=== PATIENT | male | born 1930 | race Caucasian/White ===

== ENCOUNTER 2016-08-11 10:04 | Inpatient (IN) | payer MEDICARE, OTHER ==
--- NOTE | 2016-08-11 10:55 | EKG REPORT ---
SEVERITY:- ABNORMAL ECG - SINUS RHYTHM PROBABLE INFERIOR INFARCT, OLD : Confirmed by: Cricket Marin 11-Aug-2016 10:55:00
[2016-08-11 10:58] LABS: ABSOLUTE BASOPHILS # (AUTO) 0.1 10^3/uL (0.0-0.2); ABSOLUTE EOSINOPHILS # (AUTO) 0.2 10^3/uL (0.0-0.6); ABSOLUTE LYMPHOCYTES (AUTO) 0.8 10^3/uL (0.5-4.7); ABSOLUTE MONOCYTES (AUTO) 0.6 10^3/uL (0.1-1.4); BASOPHILS % (AUTO) 1.3 % (0-2); HEMATOCRIT 33.9 % (37.9-51.0); HEMOGLOBIN 11.8 g/dL (13.5-17.0); HGB HCT DIFFERENCE 1.5; LYMPHOCYTES % (AUTO) 11.6 % (13-45); MEAN CORPUSCULAR HGB CONC 34.9 g/dL (32.0-36.0); MEAN CORPUSCULAR VOLUME 92 fl (80-97); MONOCYTES % (AUTO) 8.8 % (3-13); RED BLOOD COUNT 3.69 10^6/uL (4.35-5.55); RED CELL DISTRIBUTION WIDTH 14.2 % (11.5-14.0); SEGMENTED NEUTROPHILS % (AUTO) 75.3 % (42-78); WHITE BLOOD COUNT 6.6 10^3/uL (4.0-10.5)
[2016-08-11] MEDS ORDERED: IPRATROPIUM/ALBUTEROL 0.5-2.5 MG/3 ML AMPUL NEB ONE (11:00)
[2016-08-11 11:20] LABS: ALANINE AMINOTRANSFERASE 21 U/L (21-72); ALBUMIN 3.7 g/dL (3.5-5.0); ALCOHOL < 10 mg/dL (NONE DETECTED); ALKALINE PHOSPHATASE 235 U/L (38-126); ANION GAP 9 (5-19); ASPARTATE AMINO TRANSFERASE 25 U/L (17-59); BILIRUBIN,DIRECT 0.2 mg/dL (0.0-0.4); BILIRUBIN,TOTAL 0.4 mg/dL (0.2-1.3); BLOOD UREA NITROGEN 28 mg/dL (7-20); CALCIUM 9.2 mg/dL (8.4-10.2); CARBON DIOXIDE 29 mmol/L (22-30); CHLORIDE 103 mmol/L (98-107); CREATININE RESULT 0.94 mg/dL (0.52-1.25); GLUCOSE 88 mg/dL (75-110); MAGNESIUM 2.2 mg/dL (1.6-2.3); POTASSIUM 4.4 mmol/L (3.6-5.0); SODIUM 141.3 mmol/L (137-145); TOTAL PROTEIN 6.3 g/dL (6.3-8.2)
--- NOTE | 2016-08-11 11:20 | ER Document Report ---
ED General - General Chief Complaint: Altered Mental Status Stated Complaint: ALTERED MENTAL STATUS Mode of Arrival: Medic Information source: Patient, Relative Notes: 85 yr old male presents with concerns of altered mental status from care facility. Noted that care facility believed patient was speaking about fish in a fireplace,. Patient at this time denies any concerns, notes he has Parkinson' s and becomes confused intermittently. Patient notes he has multiple falls TRAVEL OUTSIDE OF THE [place] IN LAST 30 DAYS: No - HPI Onset: Just prior to arrival Onset/Duration: Sudden Quality of pain: No pain Severity: Mild Pain Level: Denies Associated symptoms: Other Exacerbated by: Denies Relieved by: Denies Similar symptoms previously: Yes Recently seen / treated by doctor: No - Related Data Allergies/Adverse Reactions: Penicillins Allergy (Verified 08/21/14 23:22) Past Medical History - Social History Smoking Status: Never Smoker Cigarette use (# per day): No Chew tobacco use (# tins/day): No Smoking Education Provided: No Family History: Reviewed & Not Pertinent - Past Medical History Cardiac Medical History: Reports: Hx Atrial Fibrillation - Paroxysmal atrial fibrillation, Hx Hypertension Renal/ Medical History: Reports: Hx Benign Prostatic Hyperplasia, Hx Hydrocele GI Medical History: Reports: Hx Gastroesophageal Reflux Disease Musculoskeltal Medical History: Reports Hx Arthritis Psychiatric Medical History: Reports: Hx Dementia - Parkinson's dementia, Hx Depression Past Surgical History: Reports: Hx Orthopedic Surgery - Immunizations Hx Diphtheria, Pertussis, Tetanus Vaccination: Yes - unknown Review of Systems - Review of Systems Notes: REVIEW OF SYSTEMS: CONSTITUTIONAL : Denies fever, chills, or sweats. Denies recent illness. EENT: Denies eye, ear, throat, or mouth pain or symptoms. Denies nasal or sinus congestion or discharge. Denies throat, tongue, or mouth swelling or difficulty swallowing. CARDIOVASCULAR: Denies chest pain. Denies palpitations or racing or irregular heart beat. Denies ankle edema. RESPIRATORY: Cough GASTROINTESTINAL: Denies abdominal pain or distention. Denies nausea, vomiting , or diarrhea. Denies blood in vomitus, stools, or per rectum. Denies black, tarry stools. Denies constipation. GENITOURINARY: Denies difficulty urinating, painful urination, burning, frequency, blood in urine, or discharge. MUSCULOSKELETAL: Denies back or neck pain or stiffness. Denies joint pain or swelling. SKIN: Denies rash, lesions or sores. HEMATOLOGIC : Denies easy bruising or bleeding. LYMPHATIC: Denies swollen, enlarged glands. NEUROLOGICAL: Confusion noted by care facility PSYCHIATRIC: Denies anxiety or stress. Denies depression, suicidal ideation, or homicidal ideation. ALL OTHER SYSTEMS REVIEWED AND NEGATIVE. Dictation was performed using [employer] voice recognition software PHYSICAL EXAMINATION: GENERAL: Well-appearing, well-nourished and in no acute distress. HEAD: Atraumatic, normocephalic. EYES: Pupils equal round and reactive to light, extraocular movements intact, sclera anicteric, conjunctiva are normal. ENT: Nares patent, oropharynx clear without exudates. Moist mucous membranes. NECK: Normal range of motion, supple without lymphadenopathy LUNGS: Coarse wheezing on expiration HEART: Regular rate and rhythm without murmurs ABDOMEN: Soft, nontender, nondistended abdomen. No guarding, no rebound. No masses appreciated. Musculoskeletal: Normal range of motion, no pitting or edema. No cyanosis. NEUROLOGICAL: Cranial nerves grossly intact. Normal speech, normal gait. Normal sensory, motor exams PSYCH: Normal mood, normal affect. SKIN: Warm, Dry, normal turgor, no rashes or lesions noted. Physical Exam - Vital signs Vitals: Temp Resp BP 97.8 F 17 146/74 H 08/11/16 10:13 08/11/16 10:13 08/11/16 10:13 Course - Re-evaluation Re-evalutation: 08/11/16 11:19 Lab work imaging pending, there are coarse expiratory breath sounds noted duo neb ordered septic workup pending 08/11/16 12:13 UA consistant with UTI chest xray conssitant with pneumonia Will admit the patient to hospital service for further evaluation and care Levaquin has already been started - Vital Signs Vital signs: Temp Pulse Resp BP Pulse Ox 97.8 F 20 142/73 H 96 08/11/16 10:13 08/11/16 11:35 08/11/16 11:35 08/11/16 12:03 - Laboratory Result Diagrams: 08/11/16 10:42 08/11/16 10:42 Laboratory results interpreted by me: 08/11/16 08/11/16 08/11/16 10:42 10:42 11:20 RBC 3.69 L Hgb 11.8 L Hct 33.9 L RDW 14.2 H Lymphocytes % 11.6 L BUN 28 H Alkaline Phosphatase 235 H Urine Protein 30 H Urine Ketones TRACE H Urine Blood MODERATE H Ur Leukocyte Esterase LARGE H - Diagnostic Test Radiology reviewed: Image reviewed, Reports reviewed - EKG Interpretation by Me EKG shows normal: Sinus rhythm, Burwell, Intervals, QRS Complexes Discharge - Discharge Clinical Impression: Metabolic encephalopathy Pneumonia Qualifiers: Pneumonia type: due to unspecified organism Laterality: right Lung location: lower lobe of lung Qualified Code(s): J18.1 - Lobar pneumonia, unspecified organism UTI (urinary tract infection) Qualifiers: Urinary tract infection type: site unspecified Hematuria presence: with hematuria Qualified Code(s): N39.0 - Urinary tract infection, site not specified ; R31.9 - Hematuria, unspecified Condition: Stable Disposition: ADMITTED INPATIENT Admitting Provider: Hospitalist Unit Admitted: Telemetry
[2016-08-11] MEDS ORDERED: LEVOFLOXACIN 500 MG/D5W RTU 100 ML IV ONE (11:29)
[2016-08-11 12:00] LABS: APPEARANCE,URINE TURBID; BILIRUBIN,URINE NEGATIVE (NEGATIVE); GLUCOSE, URINE NEGATIVE (NEGATIVE); KETONES,URINE TRACE mg/dL (NEGATIVE); LEUKOCYTE ESTERASE,URINE LARGE (NEGATIVE); NITRITE,URINE NEGATIVE (NEGATIVE); PROTEIN,URINE 30 mg/dL (NEGATIVE); URINE SPECIFIC GRAVITY 1.012; UROBILINOGEN,URINE NEGATIVE mg/dL (<2.0)
[2016-08-11 12:12] LABS: URINE BARBITURATES SCREEN NEGATIVE; URINE METHADONE SCREEN NEGATIVE; URINE OPIATES LOW NEGATIVE; URINE PHENCYCLIDINE SCREEN NEGATIVE
[2016-08-11] MEDS ORDERED: NORMAL SALINE 1000 ML 1,000 ML IV ONE (12:15)
[2016-08-11] MEDS ORDERED: IPRATROPIUM/ALBUTEROL 0.5-2.5 MG/3 ML AMPUL NEB PRN (12:38)
[2016-08-11] MEDS: HEPARIN SOD (PORCINE) 5,000 UNIT/ML 1 ML SYRINGE SUBCUT SCH ×2 (15:04→21:52)
[2016-08-11] MEDS: NORMAL SALINE 1000 ML 1,000 ML IV PRN (15:05)
--- NOTE | 2016-08-11 15:53 | PDOC H&P ---
History of Present Illness Admission Date/PCP: 08/11/16 12:39 ANGY CHRIS MD Patient complains of: Altered mental status sent from [facility]. History of Present Illness: JENARO ZACARIAS is a 85 year old male with history of Parkinson's disease, mild dementia, BPH, and hypertension who resides at [facility] assisted living. He was noted by the nursing staff there to be making an appropriate comments and was hallucinating that there are fish in the fireplace. His vital signs are stable, he had no cough or fever, he does have a history of frequent urinary tract infections or prostatitis. He was referred to the emergency room at [facility] for further evaluation and treatment. Urinalysis revealed significant leukocytosis room blood, and nitrate negative. Chest x- ray shows questionable small left lower lobe infiltrate versus atelectasis. The patient denies any shortness of breath, fever or cough. Patient denies any other complaints the present time. His son is at bedside. Son states he does occasionally get confused but most of the time he is oriented. Past Medical History Cardiac Medical History: Reports: Atrial Fibrillation - Paroxysmal atrial fibrillation, Hypertension Pulmonary Medical History: Reports: None EENT Medical History: Reports: None Neurological Medical History: Reports: None, Other - Parkinson's Endocrine Medical History: Reports: None Renal/ Medical History: Reports: None Malignancy Medical History: Reports: None GI Medical History: Reports: Gastroesophageal Reflux Disease Musculoskeltal Medical History: Reports: Arthritis Psychiatric Medical History: Reports: Dementia - Parkinson's dementia, Depression Traumatic Medical History: Reports: None Hematology: Reports: None Past Surgical History Past Surgical History: Reports: Orthopedic Surgery Social History Information Source: Patient, Relative - son Lives with: Skilled Nursing Smoking Status: Never Smoker Frequency of Alcohol Use: None Hx Recreational Drug Use: No Hx Prescription Drug Abuse: No - Advance Directive Resuscitation Status: Full Code Surrogate healthcare decision maker:: Sincerechapis Zacarias, child Family History Family History: CAD, Hypertension Parental Family History Reviewed: Yes Children Family History Reviewed: Yes Sibling(s) Family History Reviewed.: Yes Medication/Allergy Home Medications: Amlodipine Besylate [Norvasc 5 mg Tablet] 5 mg PO DAILY 08/11/16 Aspirin [Aspirin EC] 81 mg PO DAILY 08/11/16 Bacitracin 1 applic TOP DAILY 08/11/16 Carbidopa/Levodopa [Sinemet Cr 50-200 Tablet] 1 tab PO QID 08/11/16 Cholecalciferol (Vitamin D3) [Vitamin D3] 2,000 unit PO BID 08/11/16 Clonazepam [Klonopin] 0.5 mg PO QHS 08/11/16 Darifenacin Hydrobromide [Enablex] 7.5 mg PO QHS 08/11/16 Docusate Sodium [Colace 100 mg Capsule] 100 mg PO TID 08/11/16 Esomeprazole Mag Trihydrate [Nexium] 40 mg PO DAILY 08/11/16 Finasteride [Proscar 5 mg Tablet] 5 mg PO DAILY 08/11/16 Memantine HCl [Namenda] 5 mg PO QHS 08/11/16 Metoprolol Succinate [Toprol Xl 25 mg Tab.sr] 25 mg PO DAILY 08/11/16 Polyethylene Glycol 3350 [Miralax Powder 17 gm/Packet] 1 packet PO DAILY Sennosides [Senna] 1 tab PO DAILY 08/11/16 Terazosin HCl [Hytrin] 2 mg PO QHS 08/11/16 Venlafaxine HCl [Effexor Xr] 150 mg PO QHS 08/11/16 Allergies/Adverse Reactions: Penicillins Allergy (Verified 08/21/14 23:22) Review of Systems Constitutional: PRESENT: fatigue, weakness Eyes: ABSENT: visual disturbances Ears: ABSENT: hearing changes Cardiovascular: ABSENT: chest pain, dyspnea on exertion, edema, orthropnea, palpitations Respiratory: ABSENT: cough, hemoptysis Gastrointestinal: ABSENT: abdominal pain, constipation, diarrhea, hematemesis, hematochezia, nausea, vomiting Genitourinary: PRESENT: difficulty urinating, dysuria, nocturia Musculoskeletal: PRESENT: back pain Integumentary: ABSENT: rash, wounds Neurological: PRESENT: abnormal gait, abnormal movements, tremor(s) Psychiatric: PRESENT: depression Endocrine: ABSENT: cold intolerance, heat intolerance, polydipsia, polyuria Hematologic/Lymphatic: ABSENT: easy bleeding, easy bruising Physical Exam Vital Signs: Temp Pulse Resp BP Pulse Ox 97.9 F 82 17 132/65 H 93 08/11/16 14:24 08/11/16 14:39 08/11/16 14:24 08/11/16 14:24 08/11/16 14:24 Intake & Output 08/10/16 08/11/1617 06:59 06:59 06:59 Weight 77.111 kg General appearance: PRESENT: no acute distress, well-developed, well-nourished Head exam: PRESENT: atraumatic, normocephalic Eye exam: PRESENT: conjunctiva pink, EOMI, PERRLA. ABSENT: scleral icterus Ear exam: PRESENT: normal external ear exam Mouth exam: PRESENT: moist, tongue midline Neck exam: ABSENT: carotid bruit, JVD, lymphadenopathy, thyromegaly Respiratory exam: PRESENT: clear to auscultation rody, symmetrical, unlabored Cardiovascular exam: PRESENT: RRR. ABSENT: diastolic murmur, rubs, systolic murmur Pulses: PRESENT: normal dorsalis pedis pul Vascular exam: PRESENT: normal capillary refill GI/Abdominal exam: PRESENT: normal bowel sounds, soft. ABSENT: distended, guarding, mass, organolmegaly, rebound, tenderness Rectal exam: PRESENT: deferred Extremities exam: PRESENT: full ROM. ABSENT: calf tenderness, clubbing, pedal edema Neurological exam: PRESENT: alert, awake, oriented to person, ataxia, CN II-XII grossly intact, other - Parkinson's tremors Psychiatric exam: PRESENT: appropriate affect, normal mood. ABSENT: homicidal ideation, suicidal ideation Skin exam: PRESENT: dry, intact, warm. ABSENT: cyanosis, rash Results Impressions: Chest X-Ray 08/11/16 11:00 IMPRESSION: Minimal patchy retrocardiac infiltrate on the left. Assessment & Plan - Diagnosis (2) UTI (urinary tract infection) Qualifiers: Urinary tract infection type: site unspecified Hematuria presence: with hematuria Qualified Code(s): N39.0 - Urinary tract infection, site not specified Is this a current diagnosis for this admission?: YesPlan: Most likely from infectious process. We'll treat with IV fluids and IV antibiotics. (3) UTI (urinary tract infection) Qualifiers: Urinary tract infection type: site unspecified Hematuria presence: with hematuria Qualified Code(s): N39.0 - Urinary tract infection, site not specified Is this a current diagnosis for this admission?: YesPlan: Most likely secondary to prostatitis or urinary retention. Patient had be straight catheter urine specimen. Will treat with IV Levaquin with culture pending (4) Parkinsons disease Is this a current diagnosis for this admission?: YesPlan: Continue home medications. Patient says for falls. (5) Pneumonia Qualifiers: Pneumonia type: due to unspecified organism Laterality: left Lung location: lower lobe of lung Qualified Code(s): J18.1 - Lobar pneumonia, unspecified organism Is this a current diagnosis for this admission?: YesPlan: left lower lobe infiltrate versus atelectasis. Patient has no leukocytosis, fever or shortness of breath ,cough or shortness of breath. - Time Time Spent: 50 to 70 Minutes Critical Time spent with patient: 25-34 minutes Medications reviewed and adjusted accordingly: Yes Anticipated discharge: SNF Within: within 24 hours
[2016-08-11] MEDS: GUAIFENESIN 600 MG TABLET.SA PO SCH (21:53)
[2016-08-12] MEDS: HEPARIN SOD (PORCINE) 5,000 UNIT/ML 1 ML SYRINGE SUBCUT SCH ×3 (05:25→21:08)
[2016-08-12 05:54] LABS: ABSOLUTE BASOPHILS # (AUTO) 0.1 10^3/uL (0.0-0.2); ABSOLUTE EOSINOPHILS # (AUTO) 0.3 10^3/uL (0.0-0.6); ABSOLUTE LYMPHOCYTES (AUTO) 0.8 10^3/uL (0.5-4.7); ABSOLUTE MONOCYTES (AUTO) 0.8 10^3/uL (0.1-1.4); ABSOLUTE NEUT (AUTO) 6.9 10^3/uL (1.7-8.2); BASOPHILS % (AUTO) 1.5 % (0-2); EOSINOPHILS % (AUTO) 3.4 % (0-6); HEMATOCRIT 34.8 % (37.9-51.0); HEMOGLOBIN 12.1 g/dL (13.5-17.0); HGB HCT DIFFERENCE 1.5; LYMPHOCYTES % (AUTO) 8.9 % (13-45); MEAN CORPUSCULAR HEMOGLOBIN 32.2 pg (27.0-33.4); MEAN CORPUSCULAR HGB CONC 34.8 g/dL (32.0-36.0); MEAN CORPUSCULAR VOLUME 93 fl (80-97); MONOCYTES % (AUTO) 9.1 % (3-13); RED BLOOD COUNT 3.76 10^6/uL (4.35-5.55); RED CELL DISTRIBUTION WIDTH 14.2 % (11.5-14.0); SEGMENTED NEUTROPHILS % (AUTO) 77.1 % (42-78); WHITE BLOOD COUNT 8.9 10^3/uL (4.0-10.5)
[2016-08-12 06:18] LABS: ANION GAP 11 (5-19); BLOOD UREA NITROGEN 26 mg/dL (7-20); CALCIUM 9.3 mg/dL (8.4-10.2); CARBON DIOXIDE 27 mmol/L (22-30); CHLORIDE 110 mmol/L (98-107); CREATININE RESULT 0.88 mg/dL (0.52-1.25); GLUCOSE 89 mg/dL (75-110); POTASSIUM 4.3 mmol/L (3.6-5.0); SODIUM 147.9 mmol/L (137-145)
[2016-08-12 09:52] LABS: APPEARANCE,URINE CLOUDY; BILIRUBIN,URINE NEGATIVE (NEGATIVE); GLUCOSE, URINE NEGATIVE (NEGATIVE); KETONES,URINE NEGATIVE (NEGATIVE); LEUKOCYTE ESTERASE,URINE LARGE (NEGATIVE); NITRITE,URINE NEGATIVE (NEGATIVE); PROTEIN,URINE NEGATIVE (NEGATIVE); URINE SPECIFIC GRAVITY 1.008; UROBILINOGEN,URINE NEGATIVE mg/dL (<2.0)
--- NOTE | 2016-08-12 11:21 | PDOC PROGRESS REPORT ---
Subjective Progress Note for:: 08/12/16 Subjective:: The patient was seen earlier today on rounds. The patient denies any nausea, vomiting, diarrhea, shortness of breath, dizziness, chest pain, heart palpitations, fevers, or chills. Although I am uncertain about the patient's ability to give full history. Patient's room smelled extremely strong urine. The patient has remained afebrile. Blood pressures have been slightly elevated but stable. When prompted the patient voices no other concerns at this time. Review of systems: The rest of the review of systems is negative. Physical Exam Vital Signs: Temp Pulse Resp BP Pulse Ox 98.1 F 67 16 168/79 H 100 08/12/16 10:52 08/12/16 10:52 08/12/16 10:52 08/12/16 10:52 08/12/16 10:52 Intake & Output 08/10/16 08/11/16 08/12/16 23:59 23:59 23:59 Intake Total 0 Balance 0 General appearance: PRESENT: no acute distress, cooperative, disheveled Exam: Frail, chronically ill-appearing Head exam: PRESENT: atraumatic, normocephalic Eye exam: PRESENT: conjunctiva pink, EOMI, PERRLA. ABSENT: scleral icterus Ear exam: PRESENT: normal external ear exam Mouth exam: PRESENT: moist, tongue midline Neck exam: ABSENT: carotid bruit, JVD, lymphadenopathy, thyromegaly Respiratory exam: PRESENT: clear to auscultation rody. ABSENT: rales, rhonchi, wheezes Cardiovascular exam: PRESENT: RRR. ABSENT: diastolic murmur, rubs, systolic murmur Pulses: PRESENT: normal dorsalis pedis pul Vascular exam: PRESENT: normal capillary refill GI/Abdominal exam: PRESENT: normal bowel sounds, soft. ABSENT: distended, guarding, mass, organolmegaly, rebound, tenderness Rectal exam: PRESENT: deferred Extremities exam: PRESENT: full ROM. ABSENT: calf tenderness, clubbing, pedal edema Neurological exam: PRESENT: alert - Delayed, awake, oriented to person, oriented to place. ABSENT: motor sensory deficit Psychiatric exam: PRESENT: appropriate affect, normal mood. ABSENT: homicidal ideation, suicidal ideation Skin exam: PRESENT: dry, intact, warm. ABSENT: cyanosis, rash Results Laboratory Results: 08/12/16 09:30 Urine Color YELLOW Urine Appearance CLOUDY Urine pH 7.0 Ur Specific [place] 1.008 Urine Protein NEGATIVE Urine Glucose (UA) NEGATIVE Urine Ketones NEGATIVE Urine Blood MODERATE H Urine Nitrite NEGATIVE Ur Leukocyte Esterase LARGE H Urine WBC (Auto) 112 Urine RBC (Auto) 39 Impressions: Chest X-Ray 08/11/16 11:00 IMPRESSION: Minimal patchy retrocardiac infiltrate on the left. Assessment & Plan - Diagnosis (1) Left lower lobe pneumonia Qualifiers: Pneumonia type: due to unspecified organism Qualified Code(s): J18.1 - Lobar pneumonia, unspecified organism Is this a current diagnosis for this admission?: YesPlan: Appears improved. Currently awaiting sputum culture. Will continue antibiotic coverage as well as nebulizers and follow. (2) Anemia of chronic disease Is this a current diagnosis for this admission?: YesPlan: CAROLINE globin is stable (3) Depression Qualifiers: Depression Type: unspecified Qualified Code(s): F32.9 - Major depressive disorder, single episode, unspecified Is this a current diagnosis for this admission?: YesPlan: Will continue home medications. (4) Parkinsons disease Is this a current diagnosis for this admission?: YesPlan: Will continue home medications. (5) UTI (urinary tract infection) Qualifiers: Urinary tract infection type: site unspecified Hematuria presence: with hematuria Qualified Code(s): N39.0 - Urinary tract infection, site not specified Is this a current diagnosis for this admission?: YesPlan: Urine culture is pending. Upon review of the patient's previous admissions it appears he has had multi-microbial infections. Given that the patient's symptoms have improved will continue Levaquin for now and await culture and sensitivity. (6) Hypertension Qualifiers: Hypertension type: essential hypertension Qualified Code(s): I10 - Essential (primary) hypertension Is this a current diagnosis for this admission?: YesPlan: Will resume home meds (7) Dementia Qualifiers: Dementia type: Parkinson's disease Dementia behavioral disturbance: without behavioral disturbance Qualified Code(s): G20 - Parkinson's disease; F02.80 - Dementia in other diseases classified elsewhere without behavioral disturbance Is this a current diagnosis for this admission?: YesPlan: Continue supportive measures (8) DVT prophylaxis Is this a current diagnosis for this admission?: YesPlan: Will continue subcutaneous heparin - Time Time Spent with patient: 35 or more minutes Medications reviewed and adjusted accordingly: Yes Anticipated discharge: SNF, Acute Rehab, Other Within: within 48 hours Disposition: The patient is a full code. Pending patient's symptomatology and diagnostic findings will reevaluate in the a.m.
[2016-08-12] MEDS ORDERED: METOPROLOL SUCCINATE 25 MG TAB.SR.24H PO ONE (12:00)
[2016-08-12] MEDS ORDERED: AMLODIPINE BESYLATE 5 MG TABLET PO ONE (12:00)
[2016-08-12] MEDS ORDERED: ASPIRIN 81 MG TABLET, ENT COATED PO ONE (12:00)
[2016-08-12] MEDS: GUAIFENESIN 600 MG TABLET.SA PO SCH ×2 (12:02→21:08)
[2016-08-12] MEDS: LEVOFLOXACIN 500 MG/D5W RTU 100 ML IV SCH (12:02)
[2016-08-12] MEDS: DOCUSATE SODIUM 100 MG CAPSULE PO SCH ×2 (14:17→18:20)
[2016-08-12] MEDS: CARBIDOPA/LEVODOPA ER 50-200 MG TABLET.SA PO SCH ×3 (14:17→21:07)
[2016-08-12] MEDS ORDERED: (PENDING PHARMACY ID) (Cholecalciferol (Vitamin D3) [Vitamin D3] 2,000 UNIT) PO SCH (18:00)
[2016-08-12] MEDS: CHOLECALCIFEROL (D3) 1,000 UNIT TABLET PO SCH (18:20)
[2016-08-12] MEDS: NORMAL SALINE 1000 ML 1,000 ML IV PRN (20:11)
[2016-08-12] MEDS: MEMANTINE HCL 10 MG TABLET PO SCH (21:07)
[2016-08-12] MEDS: DOXAZOSIN MESYLATE 2 MG TABLET PO SCH (21:08)
[2016-08-12] MEDS: VENLAFAXINE HCL 75 MG CAP.SR.24H PO SCH (21:08)
[2016-08-12] MEDS: CLONAZEPAM 1 MG TABLET PO SCH (21:08)
[2016-08-12] MEDS ORDERED: DARIFENACIN HYDROBROMIDE 7.5 MG PO SCH (22:00)
[2016-08-12] MEDS ORDERED: (PENDING PHARMACY ID) (Terazosin Hcl [Hytrin] 2 MG) PO SCH (22:00)
[2016-08-12] MEDS ORDERED: (PENDING PHARMACY ID) (Clonazepam [Klonopin] 0.5 MG) PO SCH (22:00)
[2016-08-12] MEDS ORDERED: (PENDING PHARMACY ID) (Memantine Hcl [Namenda] 5 MG) PO SCH (22:00)
[2016-08-13] MEDS: HEPARIN SOD (PORCINE) 5,000 UNIT/ML 1 ML SYRINGE SUBCUT SCH ×3 (02:40→21:26)
[2016-08-13] MEDS ORDERED: POLYETHYLENE GLYCOL 3350 POWDER 17 GM/1 PACKET PO SCH (10:00)
[2016-08-13] MEDS ORDERED: SENNOSIDES PO SCH (10:00)
[2016-08-13] MEDS ORDERED: (PENDING PHARMACY ID) (Esomeprazole Mag Trihydrate [Nexium] 40 MG) PO SCH (10:00)
--- NOTE | 2016-08-13 10:31 | PDOC PROGRESS REPORT ---
Subjective Progress Note for:: 08/13/16 Subjective:: The patient was seen earlier today on rounds. The patient denies any nausea, vomiting, diarrhea, shortness of breath, dizziness, chest pain, heart palpitations, fevers, or chills. Although I am uncertain about the patient's ability to give full history. The patient has remained afebrile. Blood pressures have been slightly elevated but stable. When prompted the patient voices no other concerns at this time. Review of systems: The rest of the review of systems is negative. Physical Exam Vital Signs: Temp Pulse Resp BP Pulse Ox 97.7 F 64 18 146/74 H 100 08/13/16 07:14 08/13/16 07:14 08/13/16 07:14 08/13/16 07:14 08/13/16 07:14 Intake & Output 08/11/16 08/12/16 08/13/16 23:59 23:59 23:59 Intake Total 988 802 Output Total 600 Balance 388 802 Weight 78.2 kg General appearance: PRESENT: no acute distress, cooperative, disheveled Exam: Frail, chronically ill-appearing Head exam: PRESENT: atraumatic, normocephalic Eye exam: PRESENT: conjunctiva pink, EOMI, PERRLA. ABSENT: scleral icterus Ear exam: PRESENT: normal external ear exam Mouth exam: PRESENT: moist, tongue midline Neck exam: ABSENT: carotid bruit, JVD, lymphadenopathy, thyromegaly Respiratory exam: PRESENT: clear to auscultation rody. ABSENT: rales, rhonchi, wheezes Cardiovascular exam: PRESENT: RRR. ABSENT: diastolic murmur, rubs, systolic murmur Pulses: PRESENT: normal dorsalis pedis pul Vascular exam: PRESENT: normal capillary refill GI/Abdominal exam: PRESENT: normal bowel sounds, soft. ABSENT: distended, guarding, mass, organolmegaly, rebound, tenderness Rectal exam: PRESENT: deferred Extremities exam: PRESENT: full ROM. ABSENT: calf tenderness, clubbing, pedal edema Neurological exam: PRESENT: alert - Delayed, awake, oriented to person, oriented to place. ABSENT: motor sensory deficit Psychiatric exam: PRESENT: appropriate affect, normal mood. ABSENT: homicidal ideation, suicidal ideation Skin exam: PRESENT: dry, intact, warm. ABSENT: cyanosis, rash Results Laboratory Results: Labs- Last Values WBC 8.9 10^3/uL (4.0-10.5) 08/12/16 05:31 RBC 3.76 10^6/uL (4.35-5.55) L 08/12/16 05:31 Hgb 12.1 g/dL (13.5-17.0) L 08/12/16 05:31 Hct 34.8 % (37.9-51.0) L 08/12/16 05:31 MCV 93 fl (80-97) 08/12/16 05:31 MCH 32.2 pg (27.0-33.4) 08/12/16 05:31 MCHC 34.8 g/dL (32.0-36.0) 08/12/16 05:31 RDW 14.2 % (11.5-14.0) H 08/12/16 05:31 Plt Count 374 10^3/uL (150-450) 08/12/16 05:31 Seg Neutrophils % 77.1 % (42-78) 08/12/16 05:31 Lymphocytes % 8.9 % (13-45) L 08/12/16 05:31 Monocytes % 9.1 % (3-13) 08/12/16 05:31 Eosinophils % 3.4 % (0-6) 08/12/16 05:31 Basophils % 1.5 % (0-2) 08/12/16 05:31 Absolute Neutrophils 6.9 10^3/uL (1.7-8.2) 08/12/16 05:31 Absolute Lymphocytes 0.8 10^3/uL (0.5-4.7) 08/12/16 05:31 Absolute Monocytes 0.8 10^3/uL (0.1-1.4) 08/12/16 05:31 Absolute Eosinophils 0.3 10^3/uL (0.0-0.6) 08/12/16 05:31 Absolute Basophils 0.1 10^3/uL (0.0-0.2) 08/12/16 05:31 Sodium 147.9 mmol/L (137-145) H 08/12/16 05:31 Potassium 4.3 mmol/L (3.6-5.0) 08/12/16 05:31 Chloride 110 mmol/L (98-107) H 08/12/16 05:31 Carbon Dioxide 27 mmol/L (22-30) 08/12/16 05:31 Anion Gap 11 (5-19) 08/12/16 05:31 BUN 26 mg/dL (7-20) H 08/12/16 05:31 Creatinine 0.88 mg/dL (0.52-1.25) 08/12/16 05:31 Est GFR ( Amer) > 60 (>60) 08/12/16 05:31 Est GFR (Non-Af Amer) > 60 (>60) 08/12/16 05:31 Glucose 89 mg/dL (75-110) 08/12/16 05:31 POC Glucose 93 mg/dL (70-110) 08/11/16 11:13 Lactic Acid 1.2 mmol/L (0.7-2.1) 08/11/16 18:08 Calcium 9.3 mg/dL (8.4-10.2) 08/12/16 05:31 Magnesium 2.2 mg/dL (1.6-2.3) 08/11/16 10:42 Total Bilirubin 0.4 mg/dL (0.2-1.3) 08/11/16 10:42 Direct Bilirubin 0.2 mg/dL (0.0-0.4) 08/11/16 10:42 Indirect Bilirubin Not Reportable 08/11/16 10:42 Neonat Total Bilirubin Not Reportable 08/11/16 10:42 AST 25 U/L (17-59) 08/11/16 10:42 ALT 21 U/L (21-72) 08/11/16 10:42 Alkaline Phosphatase 235 U/L (38-126) H 08/11/16 10:42 Total Protein 6.3 g/dL (6.3-8.2) 08/11/16 10:42 Albumin 3.7 g/dL (3.5-5.0) 08/11/16 10:42 Urine Color YELLOW 08/12/16 09:30 Urine Appearance CLOUDY 08/12/16 09:30 Urine pH 7.0 (5.0-9.0) 08/12/16 09:30 Ur Specific [place] 1.008 08/12/16 09:30 Urine Protein NEGATIVE mg/dL (NEGATIVE) 08/12/16 09:30 Urine Glucose (UA) NEGATIVE mg/dL (NEGATIVE) 08/12/16 09:30 Urine Ketones NEGATIVE mg/dL (NEGATIVE) 08/12/16 09:30 Urine Blood MODERATE (NEGATIVE) H 08/12/16 09:30 Urine Nitrite NEGATIVE (NEGATIVE) 08/12/16 09:30 Urine Bilirubin NEGATIVE (NEGATIVE) 08/12/16 09:30 Urine Urobilinogen NEGATIVE mg/dL (<2.0) 08/12/16 09:30 Ur Leukocyte Esterase LARGE (NEGATIVE) H 08/12/16 09:30 Urine WBC (Auto) 112 /HPF 08/12/16 09:30 Urine RBC (Auto) 39 /HPF 08/12/16 09:30 Urine Bacteria (Auto) 3+ /HPF 08/12/16 09:30 Urine WBC Clumps MOD /HPF 08/12/16 09:30 Urine Mucus (Auto) MOD /LPF 08/12/16 09:30 Urine Yeast (Budding) PRESENT /HPF 08/11/16 11:20 Urine Ascorbic Acid NEGATIVE (NEGATIVE) 08/12/16 09:30 Urine Opiates Screen NEGATIVE 08/11/16 11:20 Urine Methadone Screen NEGATIVE 08/11/16 11:20 Ur Barbiturates Screen NEGATIVE 08/11/16 11:20 Ur Phencyclidine Scrn NEGATIVE 08/11/16 11:20 Ur Amphetamines Screen NEGATIVE 08/11/16 11:20 U Benzodiazepines Scrn NEGATIVE 08/11/16 11:20 Urine Cocaine Screen NEGATIVE 08/11/16 11:20 U Marijuana (THC) Screen NEGATIVE 08/11/16 11:20 Serum Alcohol < 10 mg/dL (NONE DETECTED) 08/11/16 10:42 Impressions: Chest X-Ray 08/11/16 11:00 IMPRESSION: Minimal patchy retrocardiac infiltrate on the left. Assessment & Plan - Diagnosis (1) Left lower lobe pneumonia Qualifiers: Pneumonia type: due to unspecified organism Qualified Code(s): J18.1 - Lobar pneumonia, unspecified organism Is this a current diagnosis for this admission?: YesPlan: Appears improved. Currently awaiting sputum culture. Will continue antibiotic coverage as well as nebulizers and follow. (2) Anemia of chronic disease Is this a current diagnosis for this admission?: YesPlan: Hgb is stable (3) Depression Qualifiers: Depression Type: unspecified Qualified Code(s): F32.9 - Major depressive disorder, single episode, unspecified Is this a current diagnosis for this admission?: YesPlan: Will continue home medications. (4) Parkinsons disease Is this a current diagnosis for this admission?: YesPlan: Will continue home medications. (5) UTI (urinary tract infection) Qualifiers: Urinary tract infection type: site unspecified Hematuria presence: with hematuria Qualified Code(s): N39.0 - Urinary tract infection, site not specified Is this a current diagnosis for this admission?: YesPlan: Urine culture is pending. Upon review of the patient's previous admissions it appears he has had multi-microbial infections. Given that the patient's symptoms have improved will continue Levaquin for now and await culture and sensitivity. (6) Hypertension Qualifiers: Hypertension type: essential hypertension Qualified Code(s): I10 - Essential (primary) hypertension Is this a current diagnosis for this admission?: YesPlan: Will resume home meds (7) Dementia Qualifiers: Dementia type: Parkinson's disease Dementia behavioral disturbance: without behavioral disturbance Qualified Code(s): G20 - Parkinson's disease; F02.81 - Dementia in other diseases classified elsewhere with behavioral disturbance Is this a current diagnosis for this admission?: YesPlan: Continue supportive measures (8) DVT prophylaxis Is this a current diagnosis for this admission?: YesPlan: Will continue subcutaneous heparin - Time Time Spent with patient: 25-34 minutes Medications reviewed and adjusted accordingly: Yes Anticipated discharge: Other Within: within 24 hours, within 48 hours
[2016-08-13] MEDS: NORMAL SALINE 1000 ML 1,000 ML IV PRN (11:20)
[2016-08-13] MEDS: POLYETHYLENE GLYCOL 3350 POWDER 17 GM/1 PACKET PO SCH (11:20)
[2016-08-13] MEDS: ASPIRIN 81 MG TABLET, ENT COATED PO SCH (11:21)
[2016-08-13] MEDS: LEVOFLOXACIN 500 MG/D5W RTU 100 ML IV SCH (11:21)
[2016-08-13] MEDS: CARBIDOPA/LEVODOPA ER 50-200 MG TABLET.SA PO SCH ×4 (11:22→21:26)
[2016-08-13] MEDS: DOCUSATE SODIUM 100 MG CAPSULE PO SCH ×3 (11:22→18:46)
[2016-08-13] MEDS: FINASTERIDE 5 MG TABLET PO SCH (11:22)
[2016-08-13] MEDS: CHOLECALCIFEROL (D3) 1,000 UNIT TABLET PO SCH ×2 (11:22→18:47)
[2016-08-13] MEDS: METOPROLOL SUCCINATE 25 MG TAB.SR.24H PO SCH (11:23)
[2016-08-13] MEDS: LANSOPRAZOLE 30 MG TAB.RAP.DR PO SCH (11:23)
[2016-08-13] MEDS: SENNOSIDES/DOCUSATE 8.6-50 MG 1 EACH TABLET PO SCH (11:23)
[2016-08-13] MEDS: AMLODIPINE BESYLATE 5 MG TABLET PO SCH (11:24)
[2016-08-13] MEDS: GUAIFENESIN 600 MG TABLET.SA PO SCH ×2 (11:24→21:26)
[2016-08-13] MEDS: ACETAMINOPHEN 325 MG TABLET PO PRN (11:37)
[2016-08-13] MEDS: DOXAZOSIN MESYLATE 2 MG TABLET PO SCH (21:26)
[2016-08-13] MEDS: MEMANTINE HCL 10 MG TABLET PO SCH (21:26)
[2016-08-13] MEDS: VENLAFAXINE HCL 75 MG CAP.SR.24H PO SCH (21:26)
[2016-08-13] MEDS: CLONAZEPAM 1 MG TABLET PO SCH (21:26)
[2016-08-14] MEDS: HEPARIN SOD (PORCINE) 5,000 UNIT/ML 1 ML SYRINGE SUBCUT SCH ×3 (05:54→22:01)
[2016-08-14 06:11] LABS: HEMATOCRIT 34.4 % (37.9-51.0); HEMOGLOBIN 11.8 g/dL (13.5-17.0); MEAN CORPUSCULAR HEMOGLOBIN 31.5 pg (27.0-33.4); MEAN CORPUSCULAR HGB CONC 34.4 g/dL (32.0-36.0); MEAN CORPUSCULAR VOLUME 92 fl (80-97); RED BLOOD COUNT 3.76 10^6/uL (4.35-5.55); RED CELL DISTRIBUTION WIDTH 14.2 % (11.5-14.0); WHITE BLOOD COUNT 7.7 10^3/uL (4.0-10.5)
[2016-08-14 06:33] LABS: ANION GAP 9 (5-19); BLOOD UREA NITROGEN 21 mg/dL (7-20); CALCIUM 9.2 mg/dL (8.4-10.2); CARBON DIOXIDE 27 mmol/L (22-30); CHLORIDE 108 mmol/L (98-107); CREATININE RESULT 0.71 mg/dL (0.52-1.25); GLUCOSE 105 mg/dL (75-110); MAGNESIUM 2.1 mg/dL (1.6-2.3); SODIUM 144.4 mmol/L (137-145)
[2016-08-14] MEDS: POLYETHYLENE GLYCOL 3350 POWDER 17 GM/1 PACKET PO SCH (09:31)
[2016-08-14] MEDS: LANSOPRAZOLE 30 MG TAB.RAP.DR PO SCH (09:32)
[2016-08-14] MEDS: CHOLECALCIFEROL (D3) 1,000 UNIT TABLET PO SCH ×2 (09:34→17:34)
[2016-08-14] MEDS: METOPROLOL SUCCINATE 25 MG TAB.SR.24H PO SCH (09:34)
[2016-08-14] MEDS: FINASTERIDE 5 MG TABLET PO SCH (09:34)
[2016-08-14] MEDS: CARBIDOPA/LEVODOPA ER 50-200 MG TABLET.SA PO SCH ×4 (09:34→22:01)
[2016-08-14] MEDS: SENNOSIDES/DOCUSATE 8.6-50 MG 1 EACH TABLET PO SCH (09:34)
[2016-08-14] MEDS: AMLODIPINE BESYLATE 5 MG TABLET PO SCH (09:35)
[2016-08-14] MEDS: GUAIFENESIN 600 MG TABLET.SA PO SCH ×2 (09:35→21:50)
[2016-08-14] MEDS: ASPIRIN 81 MG TABLET, ENT COATED PO SCH (09:35)
[2016-08-14] MEDS: DOCUSATE SODIUM 100 MG CAPSULE PO SCH ×3 (09:36→17:34)
[2016-08-14] MEDS ORDERED: LEVOFLOXACIN 500 MG TABLET PO SCH (10:00)
[2016-08-14] MEDS ORDERED: FUROSEMIDE INJ/PF 40 MG/4 ML SDV IV ONE (10:00)
[2016-08-14] MEDS ORDERED: IPRATROPIUM/ALBUTEROL 0.5-2.5 MG/3 ML AMPUL NEB PRN (12:53)
--- NOTE | 2016-08-14 13:03 | PDOC PROGRESS REPORT ---
Subjective Progress Note for:: 08/14/16 Subjective:: The patient was seen earlier today on rounds. The patient denies any nausea, vomiting, diarrhea, shortness of breath, dizziness, chest pain, heart palpitations, fevers, or chills. Although I am uncertain about the patient's ability to give full history. The patient has remained afebrile. Blood pressures have been slightly elevated but stable. When prompted the patient voices no other concerns at this time. Review of systems: The rest of the review of systems is negative. Physical Exam Vital Signs: Temp Pulse Resp BP Pulse Ox 97.3 F 64 14 130/76 H 100 08/14/16 12:30 08/14/16 12:30 08/14/16 12:30 08/14/16 12:30 08/14/16 12:30 Intake & Output 08/12/16 08/13/16 08/14/16 23:59 23:59 23:59 Intake Total 988 2404 1208 Output Total 600 Balance 388 2404 1208 Weight 76.6 kg 85.4 kg General appearance: PRESENT: no acute distress, cooperative, disheveled Exam: Frail, chronically ill-appearing Head exam: PRESENT: atraumatic, normocephalic Eye exam: PRESENT: conjunctiva pink, EOMI, PERRLA. ABSENT: scleral icterus Ear exam: PRESENT: normal external ear exam Mouth exam: PRESENT: moist, tongue midline Neck exam: ABSENT: carotid bruit, JVD, lymphadenopathy, thyromegaly Respiratory exam: PRESENT: clear to auscultation rody. ABSENT: rales, rhonchi, wheezes Cardiovascular exam: PRESENT: RRR. ABSENT: diastolic murmur, rubs, systolic murmur Pulses: PRESENT: normal dorsalis pedis pulses. Vascular exam: PRESENT: normal capillary refill GI/Abdominal exam: PRESENT: normal bowel sounds, soft. ABSENT: distended, guarding, mass, organolmegaly, rebound, tenderness Rectal exam: PRESENT: deferred Extremities exam: PRESENT: full ROM. ABSENT: calf tenderness, clubbing, pedal edema Neurological exam: PRESENT: alert - Delayed, awake, oriented to person, oriented to place. ABSENT: motor sensory deficit Psychiatric exam: PRESENT: appropriate affect, normal mood. ABSENT: homicidal ideation, suicidal ideation Skin exam: PRESENT: dry, intact, warm. ABSENT: cyanosis, rash Results Laboratory Results: 08/14/16 06:00 08/14/16 06:00 08/14/16 08/14/16 06:00 06:00 WBC 7.7 RBC 3.76 L Hgb 11.8 L Hct 34.4 L MCV 92 MCH 31.5 MCHC 34.4 RDW 14.2 H Plt Count 330 Sodium 144.4 Potassium 4.0 Chloride 108 H Carbon Dioxide 27 Anion Gap 9 BUN 21 H Creatinine 0.71 Est GFR ( Amer) > 60 Est GFR (Non-Af Amer) > 60 Glucose 105 Calcium 9.2 Magnesium 2.1 08/12/16 09:30 Catheterized Urine Urine Culture - Final Escherichia Coli 08/12/16 18:25 Sputum Gram Stain - Final 08/12/16 18:25 Sputum Sputum Culture - Final NORMAL JUSTUS Impressions: Chest X-Ray 08/11/16 11:00 IMPRESSION: Minimal patchy retrocardiac infiltrate on the left. Assessment & Plan - Diagnosis (1) Left lower lobe pneumonia Qualifiers: Pneumonia type: due to unspecified organism Qualified Code(s): J18.1 - Lobar pneumonia, unspecified organism Is this a current diagnosis for this admission?: YesPlan: Appears improved. (2) UTI (urinary tract infection) Qualifiers: Urinary tract infection type: site unspecified Hematuria presence: with hematuria Qualified Code(s): N39.0 - Urinary tract infection, site not specified Is this a current diagnosis for this admission?: YesPlan: Urine culture is pending. Upon review of the patient's previous admissions it appears he has had multi-microbial infections. Given that the patient's symptoms have improved will continue Levaquin for now and await culture and sensitivity. (3) Anemia of chronic disease Is this a current diagnosis for this admission?: YesPlan: Hgb is stable (4) Depression Qualifiers: Depression Type: unspecified Qualified Code(s): F32.9 - Major depressive disorder, single episode, unspecified Is this a current diagnosis for this admission?: YesPlan: Will continue home medications. (5) Parkinsons disease Is this a current diagnosis for this admission?: YesPlan: Will continue home medications. (6) Hypertension Qualifiers: Hypertension type: essential hypertension Qualified Code(s): I10 - Essential (primary) hypertension Is this a current diagnosis for this admission?: YesPlan: Will resume home meds (7) Dementia Qualifiers: Dementia type: Parkinson's disease Dementia behavioral disturbance: without behavioral disturbance Qualified Code(s): G20 - Parkinson's disease; F02.81 - Dementia in other diseases classified elsewhere with behavioral disturbance Is this a current diagnosis for this admission?: YesPlan: Continue supportive measures (8) DVT prophylaxis Is this a current diagnosis for this admission?: YesPlan: Will continue subcutaneous heparin - Time Time Spent with patient: 25-34 minutes Medications reviewed and adjusted accordingly: Yes Anticipated discharge: Other Within: within 24 hours
[2016-08-14] MEDS ORDERED: CEFUROXIME 500 MG TABLET PO ONE (13:15)
[2016-08-14] MEDS: ACETAMINOPHEN 325 MG TABLET PO PRN (19:49)
[2016-08-14] MEDS: CEFUROXIME 500 MG TABLET PO SCH (21:49)
[2016-08-14] MEDS: VENLAFAXINE HCL 75 MG CAP.SR.24H PO SCH (21:50)
[2016-08-14] MEDS: CLONAZEPAM 1 MG TABLET PO SCH (22:01)
[2016-08-14] MEDS: MEMANTINE HCL 10 MG TABLET PO SCH (22:01)
[2016-08-14] MEDS: DOXAZOSIN MESYLATE 2 MG TABLET PO SCH (22:03)
[2016-08-15] MEDS: HEPARIN SOD (PORCINE) 5,000 UNIT/ML 1 ML SYRINGE SUBCUT SCH ×2 (06:38→13:21)
[2016-08-15] MEDS: CARBIDOPA/LEVODOPA ER 50-200 MG TABLET.SA PO SCH ×2 (10:46→13:20)
[2016-08-15] MEDS: AMLODIPINE BESYLATE 5 MG TABLET PO SCH (10:46)
[2016-08-15] MEDS: SENNOSIDES/DOCUSATE 8.6-50 MG 1 EACH TABLET PO SCH (10:46)
[2016-08-15] MEDS: CEFUROXIME 500 MG TABLET PO SCH (10:46)
[2016-08-15] MEDS: DOCUSATE SODIUM 100 MG CAPSULE PO SCH ×2 (10:47→13:20)
[2016-08-15] MEDS: FINASTERIDE 5 MG TABLET PO SCH (10:47)
[2016-08-15] MEDS: METOPROLOL SUCCINATE 25 MG TAB.SR.24H PO SCH (10:47)
[2016-08-15] MEDS: ASPIRIN 81 MG TABLET, ENT COATED PO SCH (10:47)
[2016-08-15] MEDS: POLYETHYLENE GLYCOL 3350 POWDER 17 GM/1 PACKET PO SCH (10:47)
[2016-08-15] MEDS: GUAIFENESIN 600 MG TABLET.SA PO SCH (10:47)
[2016-08-15] MEDS: CHOLECALCIFEROL (D3) 1,000 UNIT TABLET PO SCH (10:47)
[2016-08-15] MEDS: LANSOPRAZOLE 30 MG TAB.RAP.DR PO SCH (10:47)
--- NOTE | 2016-08-15 13:21 | PDOC DISCHARGE SUMMARY ---
General - Admit/Disc Date/PCP Admission Date/Primary Care Provider: 08/12/16 08:00 ANGY CHRIS MD - Discharge Diagnosis (1) Left lower lobe pneumonia Is this a current diagnosis for this admission?: Yes (2) UTI (urinary tract infection) Is this a current diagnosis for this admission?: Yes (3) Anemia of chronic disease Is this a current diagnosis for this admission?: Yes (4) Depression Is this a current diagnosis for this admission?: Yes (5) Parkinsons disease Is this a current diagnosis for this admission?: Yes (6) Hypertension Is this a current diagnosis for this admission?: Yes (7) Dementia Is this a current diagnosis for this admission?: Yes (8) DVT prophylaxis Is this a current diagnosis for this admission?: Yes - Additional Information Resuscitation Status: Full Code Discharge Diet: Regular Discharge Activity: Activity As Tolerated Home Medications: Amlodipine Besylate [Norvasc 5 mg Tablet] 5 mg PO DAILY 08/11/16 Aspirin [Aspirin EC] 81 mg PO DAILY 08/11/16 Bacitracin 1 applic TOP DAILY 08/11/16 Carbidopa/Levodopa [Sinemet Cr 50-200 Tablet] 1 tab PO QID 08/11/16 Cholecalciferol (Vitamin D3) [Vitamin D3] 2,000 unit PO BID 08/11/16 Clonazepam [Klonopin] 0.5 mg PO QHS 08/11/16 Darifenacin Hydrobromide [Enablex] 7.5 mg PO QHS 08/11/16 Docusate Sodium [Colace 100 mg Capsule] 100 mg PO TID 08/11/16 Esomeprazole Mag Trihydrate [Nexium] 40 mg PO DAILY 08/11/16 Finasteride [Proscar 5 mg Tablet] 5 mg PO DAILY 08/11/16 Memantine HCl [Namenda] 5 mg PO QHS 08/11/16 Metoprolol Succinate [Toprol Xl 25 mg Tab.sr] 25 mg PO DAILY 08/11/16 Polyethylene Glycol 3350 [Miralax Powder 17 gm/Packet] 1 packet PO DAILY Sennosides [Senna] 1 tab PO DAILY 08/11/16 Terazosin HCl [Hytrin] 2 mg PO QHS 08/11/16 Venlafaxine HCl [Effexor Xr] 150 mg PO QHS 08/11/16 Cefuroxime Axetil [Ceftin 500 mg Tablet] 500 mg PO Q12 #14 tablet 08/15/16 History of Present Illness Patient complains of: Altered mental status History of Present Illness: JENARO ZACARIAS is a 85 year old male with history of Parkinson's disease, mild dementia, BPH, and hypertension who resides at [facility]. He was noted by the nursing staff there to be making an appropriate comments and was hallucinating that there are fish in the fireplace. His vital signs are stable, he had no cough or fever, he does have a history of frequent urinary tract infections or prostatitis. He was referred to the emergency room at [facility] for further evaluation and treatment. Urinalysis revealed significant leukocytosis room blood, and nitrate negative. Chest x- ray shows questionable small left lower lobe infiltrate versus atelectasis. The patient denies any shortness of breath, fever or cough. Patient denies any other complaints the present time. His son is at bedside. Son states he does occasionally get confused but most of the time he is oriented. Hospital Course Hospital Course: The patient was admitted to continuous telemetry unit. Urine analysis and culture was obtained. The patient had findings suggestive of a urinary tract infection. Patient's urine culture revealed Escherichia coli which is resistant to loreta quinolones which was sensitive to Ceftin and the patient received antibiotic coverage. The patient's symptoms completely resolved in mentation returned to baseline. The patient was placed on scheduled nebs, IV antibiotic coverage, expectorants, supplemental O2, incentive spirometry and flutter valve. Sputum culture was obtained with no growth. The patient was transitioned back to baseline oxygen. Follow-up chest x-ray is recommended. Physical Exam Vital Signs: Temp Pulse Resp BP Pulse Ox 97.5 F 66 22 H 135/71 H 96 08/15/16 07:38 08/15/16 07:38 08/15/16 07:38 08/15/16 07:38 08/15/16 07:38 Intake & Output 08/13/16 08/14/16 08/15/16 23:59 23:59 23:59 Intake Total 2404 1448 600 Balance 2404 1448 600 Weight 76.6 kg 85.4 kg 75.9 kg General appearance: PRESENT: no acute distress, cooperative, disheveled Exam: Frail, chronically ill-appearing Head exam: PRESENT: atraumatic, normocephalic Eye exam: PRESENT: conjunctiva pink, EOMI, PERRLA. ABSENT: scleral icterus Ear exam: PRESENT: normal external ear exam Mouth exam: PRESENT: moist, tongue midline Neck exam: ABSENT: carotid bruit, JVD, lymphadenopathy, thyromegaly Respiratory exam: PRESENT: clear to auscultation rody. ABSENT: rales, rhonchi, wheezes Cardiovascular exam: PRESENT: RRR. ABSENT: diastolic murmur, rubs, systolic murmur Pulses: PRESENT: normal dorsalis pedis pulses. Vascular exam: PRESENT: normal capillary refill GI/Abdominal exam: PRESENT: normal bowel sounds, soft. ABSENT: distended, guarding, mass, organolmegaly, rebound, tenderness Rectal exam: PRESENT: deferred Extremities exam: PRESENT: full ROM. ABSENT: calf tenderness, clubbing, pedal edema Neurological exam: PRESENT: alert - Delayed, awake, oriented to person, oriented to place. ABSENT: motor sensory deficit Psychiatric exam: PRESENT: appropriate affect, normal mood. ABSENT: homicidal ideation, suicidal ideation Skin exam: PRESENT: dry, intact, warm. ABSENT: cyanosis, rash Results Laboratory Results: Labs- Last Values WBC 7.7 10^3/uL (4.0-10.5) 08/14/16 06:00 RBC 3.76 10^6/uL (4.35-5.55) L 08/14/16 06:00 Hgb 11.8 g/dL (13.5-17.0) L 08/14/16 06:00 Hct 34.4 % (37.9-51.0) L 08/14/16 06:00 MCV 92 fl (80-97) 08/14/16 06:00 MCH 31.5 pg (27.0-33.4) 08/14/16 06:00 MCHC 34.4 g/dL (32.0-36.0) 08/14/16 06:00 RDW 14.2 % (11.5-14.0) H 08/14/16 06:00 Plt Count 330 10^3/uL (150-450) 08/14/16 06:00 Seg Neutrophils % 77.1 % (42-78) 08/12/16 05:31 Lymphocytes % 8.9 % (13-45) L 08/12/16 05:31 Monocytes % 9.1 % (3-13) 08/12/16 05:31 Eosinophils % 3.4 % (0-6) 08/12/16 05:31 Basophils % 1.5 % (0-2) 08/12/16 05:31 Absolute Neutrophils 6.9 10^3/uL (1.7-8.2) 08/12/16 05:31 Absolute Lymphocytes 0.8 10^3/uL (0.5-4.7) 08/12/16 05:31 Absolute Monocytes 0.8 10^3/uL (0.1-1.4) 08/12/16 05:31 Absolute Eosinophils 0.3 10^3/uL (0.0-0.6) 08/12/16 05:31 Absolute Basophils 0.1 10^3/uL (0.0-0.2) 08/12/16 05:31 Sodium 144.4 mmol/L (137-145) 08/14/16 06:00 Potassium 4.0 mmol/L (3.6-5.0) 08/14/16 06:00 Chloride 108 mmol/L (98-107) H 08/14/16 06:00 Carbon Dioxide 27 mmol/L (22-30) 08/14/16 06:00 Anion Gap 9 (5-19) 08/14/16 06:00 BUN 21 mg/dL (7-20) H 08/14/16 06:00 Creatinine 0.71 mg/dL (0.52-1.25) 08/14/16 06:00 Est GFR ( Amer) > 60 (>60) 08/14/16 06:00 Est GFR (Non-Af Amer) > 60 (>60) 08/14/16 06:00 Glucose 105 mg/dL (75-110) 08/14/16 06:00 POC Glucose 93 mg/dL (70-110) 08/11/16 11:13 Lactic Acid 1.2 mmol/L (0.7-2.1) 08/11/16 18:08 Calcium 9.2 mg/dL (8.4-10.2) 08/14/16 06:00 Magnesium 2.1 mg/dL (1.6-2.3) 08/14/16 06:00 Total Bilirubin 0.4 mg/dL (0.2-1.3) 08/11/16 10:42 Direct Bilirubin 0.2 mg/dL (0.0-0.4) 08/11/16 10:42 Indirect Bilirubin Not Reportable 08/11/16 10:42 Neonat Total Bilirubin Not Reportable 08/11/16 10:42 AST 25 U/L (17-59) 08/11/16 10:42 ALT 21 U/L (21-72) 08/11/16 10:42 Alkaline Phosphatase 235 U/L (38-126) H 08/11/16 10:42 Total Protein 6.3 g/dL (6.3-8.2) 08/11/16 10:42 Albumin 3.7 g/dL (3.5-5.0) 08/11/16 10:42 Urine Color YELLOW 08/12/16 09:30 Urine Appearance CLOUDY 08/12/16 09:30 Urine pH 7.0 (5.0-9.0) 08/12/16 09:30 Ur Specific [place] 1.008 08/12/16 09:30 Urine Protein NEGATIVE mg/dL (NEGATIVE) 08/12/16 09:30 Urine Glucose (UA) NEGATIVE mg/dL (NEGATIVE) 08/12/16 09:30 Urine Ketones NEGATIVE mg/dL (NEGATIVE) 08/12/16 09:30 Urine Blood MODERATE (NEGATIVE) H 08/12/16 09:30 Urine Nitrite NEGATIVE (NEGATIVE) 08/12/16 09:30 Urine Bilirubin NEGATIVE (NEGATIVE) 08/12/16 09:30 Urine Urobilinogen NEGATIVE mg/dL (<2.0) 08/12/16 09:30 Ur Leukocyte Esterase LARGE (NEGATIVE) H 08/12/16 09:30 Urine WBC (Auto) 112 /HPF 08/12/16 09:30 Urine RBC (Auto) 39 /HPF 08/12/16 09:30 Urine Bacteria (Auto) 3+ /HPF 08/12/16 09:30 Urine WBC Clumps MOD /HPF 08/12/16 09:30 Urine Mucus (Auto) MOD /LPF 08/12/16 09:30 Urine Yeast (Budding) PRESENT /HPF 08/11/16 11:20 Urine Ascorbic Acid NEGATIVE (NEGATIVE) 08/12/16 09:30 Urine Opiates Screen NEGATIVE 08/11/16 11:20 Urine Methadone Screen NEGATIVE 08/11/16 11:20 Ur Barbiturates Screen NEGATIVE 08/11/16 11:20 Ur Phencyclidine Scrn NEGATIVE 08/11/16 11:20 Ur Amphetamines Screen NEGATIVE 08/11/16 11:20 U Benzodiazepines Scrn NEGATIVE 08/11/16 11:20 Urine Cocaine Screen NEGATIVE 08/11/16 11:20 U Marijuana (THC) Screen NEGATIVE 08/11/16 11:20 Serum Alcohol < 10 mg/dL (NONE DETECTED) 08/11/16 10:42 08/12/16 18:25 Gram Stain - Final Sputum Sputum Culture - Final NORMAL LORETA 08/12/16 09:30 Urine Culture - Final Catheterized Urine Escherichia Coli 08/11/16 13:03 Blood Culture - Preliminary Blood NO GROWTH 4 DAYS 08/11/16 11:56 Blood Culture - Preliminary Blood NO GROWTH 4 DAYS Impressions: Chest X-Ray 08/11/16 11:00 IMPRESSION: Minimal patchy retrocardiac infiltrate on the left. Qualifiers PATEINT BEING DISCHARGED WITH ANY OF THE FOLLOWING DIAGNOSIS?: No Plan Discharge Plan: The patient be transferred back to assisted living. The patient's follow-up primary care provider within one to 2 weeks for hospital follow-up. Time Spent: Greater than 30 Minutes
[2016-08-15 16:24] VITALS: BP 127/68
== END 2016-08-15 16:07 | disposition home health service (06) | DRG 194 ==
LOC: ER 10:04 → EH 12:39 → INTOOBSV 12:39 → UNDOADMIN 13:02 → EH 13:02 → 4W 14:21 → OBSVTOIN 08-12 08:00
PROVIDERS: ADMIT Internal Medicine; ATTEND Internal Medicine
DX: J18.1 Lobar pneumonia, unspecified organism (principal); N39.0 Urinary tract infection, site not specified; B96.20 Unspecified Escherichia coli [E. coli] as the cause of diseases classified elsewhere; I48.0 Paroxysmal atrial fibrillation; D63.8 Anemia in other chronic diseases classified elsewhere; I10 Essential (primary) hypertension; N40.0 Benign prostatic hyperplasia without lower urinary tract symptoms; G20 Parkinson's disease; F02.80 Dementia in other diseases classified elsewhere, unspecified severity, without behavioral disturbance, psychotic disturbance, mood disturbance, and anxiety; F32.9 Major depressive disorder, single episode, unspecified; K21.9 Gastro-esophageal reflux disease without esophagitis; M19.90 Unspecified osteoarthritis, unspecified site; Z79.82 Long term (current) use of aspirin; Z79.899 Other long term (current) drug therapy; Z88.0 Allergy status to penicillin
CPT/HCPCS: 36415; 71010; 80048; 80053; 80307; 81001; 82962; 83605; 83735; 85025; 85027; 87040; 87070; 87086; 87088; 87186; 87205; 93005; 93010; 94640; 94799; 96365; 99285; G0378; J1644; J1940; J1956; J3490; J7030; J7620

== ENCOUNTER → 2016-09-26 | Outpatient (CLI) | payer MEDICARE, OTHER ==
--- NOTE | 2016-09-26 10:51 | ST Modified Barium Swallow ---
Recommendation - Recommendations Recommendations: 1) DIET: Recommend mechanical soft cut meats and thin liquids- No straws. Pt observed to penetrate with thin and nectar equally, however increased pharyngeal residuals observed on nectar placing pt at increased risk of aspiration after the swallow. Reduced penetration on thin with use of chin tuck. 2) STRATEGIES: No straws, chin tuck with all swallows, alternate bites and sips, pills whole or crushed in puree. 3) TREATMENT: Recommend speech therapy at [facility]. SUMMARY: Pt presents with a moderate oropharyngeal dysphagia characterized by mild-moderate residuals in the valleculae and mild residuals in the pyriforms, deep penetration of thin liquids , nectar thick liquids, and mixed residuals. No aspiration observed during the study however pt is at increased risk of aspiration due to residuals. Likely safest diet is [facility] meats and thin liquids. Medical Diagnoses - Medical Diagnoses Medical Diagnosis Description & ICD-10 Code(s): r13.10 Other Medical Diagnoses/Co-Morbidities: parkinsons disease, dementia, reflux, batter mixer reports possible Lewy Body dementia. - ICD-10 Tx Diagnosis Coding (1) Dysphagia, oropharyngeal phase ICD-10 Code(s): R13.12 - DYSPHAGIA, OROPHARYNGEAL PHASE (2) Dysphagia, pharyngeal phase ICD-10 Code(s): R13.13 - DYSPHAGIA, PHARYNGEAL PHASE ST Modified Barium Swallow - General Date: 09/26/16 Referring Physician: Dr Johnson Risks/Precautions: Falls - pt in wheelchair Date of Onset: 09/26/14 Reason for Referral: dysphagia - History History obtained from: Patient, Parent/Caregiver - batter mixer -: Medical - Pt's batter mixer reports pt had recent admit to hospital (July) for UTI and later discvered a "mild PNA". Pt reports difficulty swallowing pills, cough on thin liquids, sensation of choking, denies globus sensation. Scale Tester states pt recently placed on nectar thick liquids due to cough with thin. Not currently receiving ST service at [facility]. Medications: aspirin, docusate, effexor, enablex, finasteride, klonopin, metoprolol, miralax, namenda, nexium, norvasc, senna, sinemet, terazosin, vitamin D3 Allergies: penicillins - Functional Status Prior Functional Status: INDEPENDENT: feeding Current Functional Limitations: feeding - Subjective Patient/caregiver goal(s): safe swallow, r/o aspiration Cognitive-Linguistic Function: Mildly Impaired Speech Intelligibility: WNL Current Nutritional Means: PO Current PO diet: Regular Current symptoms: Coughing, Pneumonia Pain: 2/5 - back pain - Objective Assessment: Upright, Left Lateral - Food Trials Used Food trials used: Thin liquids, Minor thick liquids, Pureed, Soft solids The patient: Was Able to Self Feed - Oral-Motor Skills Velo-pharyngeal function: Unremarkable Laryngeal Function: Volitional Cough, Throat Clear - Assessment Oral prep: Normal Labial closure: Adequate Leakage: None Mastication: Adequate Lingual Movement: Normal Oral stage: Normal for this Procedure - Pharyngeal Stage Initiation of Pharyngeal Stage Reflex: Normal Decreased laryngeal elevation: Yes - mild-moderate Reduced Velopharyngeal Closure: no Reduced pressure generation: Yes - mild-moderate reduced tongue-based retraction: Yes - moderate Pre-swallow pooling in valleculae: None Pre-Swallow pooling in pyriforms: None Reduced Thyro-Hyoid approximation: Yes - mild-moderate Reduced epiglottic excursion: Yes - mild Reduced pharyngeal peristalsis/contraction: Yes - mild Multiple Swallows with: Cleared w/ Liquid Assist - partial clearance Post-swallow residulas vallecular: Moderate - on puree and soft solids Post-Swallow residuals in pyriforms: Mild - on puree and soft solids Post-Swallow Residuals: Posterior pharyngeal wall - on soft solids, tongue-base Reduced Cricopharyngeal opening: No - Esophageal Stage Cricopharyngeal Function: Normal - Fall Risk Assessment Medications/Conditions that increase fall risks include: Antidepressants, sedatives, anti-arrhythmic, diuretic, benzodiazipenes, neuroleptics. BP regulation problems, cardiac problems, balance or gait deficits, neurological problems. Is patient considered at risk for falls: yes Fall Risk Actions Taken: Pt physician notified - Behavioral Observations During evaluation process patient: was pleasant, was cooperative, able to answer questions, provided medical history - Treatment / Educational Needs: Treatment/Education Needs: Treatment consisted of patient education on the role of the Speech Pathologist. Patient's plan of care and golas were communicated as well as scheduling and attendance policies. Recommendations for initial home program were shared. Patient demonstrated understanding and verbalized agreement. Initial home program recommendations: Pt and batter mixer provided with verbal and written education on dysphagia and recommendations from study. Pt and batter mixer verbalized understanding. - Impression/Summary Laryngeal Penetration: Yes - on thin and nectar, Deep, during swallow, after swallow - on mixed residuals Tracheal Aspiration: no Effective compensatory strategies: chin tuck - aided in partial clearance or residuals and airway protection on thin liquids Ineffective compensatory strategies: hard swallow Patient presents with: Pharyngeal stage dysph., Oral-Pharyngeal dysph., Mild- Moderate Risk of Aspiration: Moderate - mild-moderate - Recommendations NPO: no Solid diet recommendations: Mechanical Soft, Chopped Meat Liquid Diet Modification: Thin Strict aspiration precautions: Yes Pt/Family education and followup with MD: Yes Dysphagia therapy with [employer]: yes, dysphagia therapy Recommended techniques: Fully Upright During Meal, Small Bites and Sips, Alternate Bites/Sips Supervision: Distant Information, Precautions and Recommendations: Patient (Written), Patient (Verbal ) - Time Total Time: 30 - Plan of Care Strategies to optimize patient understanding include:: ongoing assessment of educational needs, implementation of educational strategies, and re-education. - - -: Thank you for the opportunity to work with this patient and his/her family. Should you have any questions about this patient's plan or progress, I can be reached at [phone]. Charge G Code? - - -: Yes ST F.L. Impairment Category - Rationale Based On Rationale Based On: Clin Find., Obj Measures - Swallowing Current G8996: CK 40-59% Impaired Goal G8997: CK 40-59% Impaired Discharge G8998: CK 40-59% Impaired
== END ==
LOC: RAD 08:09
PROVIDERS: ATTEND Internal Medicine
DX: T17.2 Foreign body in pharynx (principal); X58.XXXS Exposure to other specified factors, sequela; R13.10 Dysphagia, unspecified
CPT/HCPCS: 74230; 92611; G8996; G8997; G8998

== ENCOUNTER 2016-11-03 11:23 | Observation (INO) | payer MEDICARE, OTHER ==
[2016-11-03] MEDS ORDERED: ASPIRIN 81 MG TABLET, CHEWABLE PO ONE (11:40)
--- NOTE | 2016-11-03 11:47 | ER Document Report ---
ED Cardiac - General Mode of Arrival: Medic Information source: Patient TRAVEL OUTSIDE OF THE [place] IN LAST 30 DAYS: No - HPI Patient complains to provider of: Chest tightness. denies: Shortness of breath Chest pain precipitating factors: At Rest Associated symptoms: Other - see notes above <ZOHREH MESA - Last Filed: 11/03/16 12:59> <CAROLIN VASQUEZ - Last Filed: 11/03/16 19:16> - General Chief Complaint: Chest Pain Stated Complaint: CHEST DISCOMFORT Time Seen by Provider: 11/03/16 11:29 Notes: 86-year-old male with history of Parkinson's, dementia, and chest tightness presents to the ED complaining of chest tightness that started while he was relaxing on the couch this morning. Patient reports he had 5 episodes of similar chest tightness several years ago which resulted in a coronary stent. Patient reports that taking 10 deep breaths usually helps with the tightness, but did not help with this episode. Patient informed nursing staff at [facility] and was brought to the ED. Patient denies any current chest pain or shortness of breath. Patient also comments on having several episodes of falling over the past 5 years. PCP: Dr. Sung (ZOHREH MESA) - Related Data Allergies/Adverse Reactions: Penicillins Allergy (Verified 08/21/14 23:22) Home Medications: Current Home Medications Cholecalciferol (Vitamin D3) [Vitamin D3 1000 unit Chewable Tablet] 2,000 unit PO DAILY 11/03/16 [History] Mirabegron [Myrbetriq] 25 mg PO QHS 11/03/16 [History] Past Medical History - General Information source: Patient - Social History Smoking Status: Never Smoker Chew tobacco use (# tins/day): No Frequency of alcohol use: Occasional Drug Abuse: None Family History: CAD, Hypertension - Past Medical History Cardiac Medical History: Reports: Hx Atrial Fibrillation - Paroxysmal atrial fibrillation, Hx Hypertension Denies: Hx Heart Attack Neurological Medical History: Reports: Other - Parkinson's. Denies: Hx Cerebrovascular Accident Renal/ Medical History: Reports: Hx Benign Prostatic Hyperplasia, Hx Hydrocele GI Medical History: Reports: Hx Gastroesophageal Reflux Disease Musculoskeltal Medical History: Reports Hx Arthritis Psychiatric Medical History: Reports: Hx Dementia - Parkinson's dementia, Hx Depression Past Surgical History: Reports: Hx Orthopedic Surgery - Immunizations Hx Diphtheria, Pertussis, Tetanus Vaccination: Yes - unknown <ZOHREH MESA - Last Filed: 11/03/16 12:59> Review of Systems - Review of Systems Constitutional: No symptoms reported EENT: No symptoms reported Cardiovascular: See HPI, Chest pain - Tightness Respiratory: No symptoms reported. denies: Short of breath Gastrointestinal: No symptoms reported Genitourinary: No symptoms reported Male Genitourinary: No symptoms reported Musculoskeletal: No symptoms reported Skin: No symptoms reported Hematologic/Lymphatic: No symptoms reported Neurological/Psychological: No symptoms reported -: Yes All other systems reviewed and negative <ZOHREH MESA - Last Filed: 11/03/16 12:59> Physical Exam <ZOHREH MESA - Last Filed: 11/03/16 12:59> <CAROLIN VASQUEZ - Last Filed: 11/03/16 19:16> - Vital signs Vitals: Resp Pulse Ox 15 94 11/03/16 11:35 11/03/16 11:35 - Notes Notes: GENERAL: Alert, interacts well. No acute distress. HEAD: Normocephalic, atraumatic. EYES: Pupils equal, round, and reactive to light. Extraocular movements intact. ENT: Oral mucosa moist, tongue midline. NECK: Full range of motion. Supple. Trachea midline. LUNGS: Clear to auscultation bilaterally, no wheezes, rales, or rhonchi. No respiratory distress. HEART: Regular rate and rhythm. No murmurs, gallops, or rubs. ABDOMEN: Soft, non-tender. Non-distended. Bowel sounds present in all 4 quadrants. EXTREMITIES: Moves all 4 extremities spontaneously. No edema, radial and dorsalis pedis pulses 2/4 bilaterally. No cyanosis. NEUROLOGICAL: Alert and oriented x3. Normal speech. Resting tremor. PSYCH: Normal affect, normal mood. SKIN: Warm, dry, normal turgor. No rashes or lesions noted. (ZOHREH MESA) Course - Laboratory Result Diagrams: 11/03/16 11:30 11/03/16 11:30 - Consults Dr. Ford Time consulted: 12:45 <ZOHREH MESA - Last Filed: 11/03/16 12:59> - Laboratory Result Diagrams: 11/03/16 11:30 11/03/16 11:30 <CAROLIN VASQUEZ - Last Filed: 11/03/16 19:16> - Re-evaluation Re-evalutation: 11/03/16 12:45 Patient and son were updated and are in agreement in staying. (ZOHREH MESA) 11/03/16 12:49 CBC shows mild anemia with hemoglobin 12.6 but no leukocytosis, coags normal, CMP shows slightly elevated BUN at 26, glucose minimally low at 71, alkaline phosphatase slightly elevated 146 otherwise unremarkable, cardiac enzymes initially negative, chest x-ray shows abnormality right mid lung zone pneumonia versus asymmetric edema. At this time I favor asymmetric edema as he does not have a fever nor is there any leukocytosis and he has not had a cough. BNP has been added to the workup. Patient has been given aspirin, EKG is nonischemic. Discussed the patient with Dr. Howell from the hospitalist service who agrees to accept the patient to her service in observation status for chest pain rule out. I have discussed this with the patient and his son as well and they are in agreement with the plan as well. (CAROLIN VASQUEZ) - Vital Signs Vital signs: Temp Pulse Resp BP Pulse Ox 98.0 F 71 18 127/76 H 93 11/03/16 15:39 11/03/16 15:39 11/03/16 15:39 11/03/16 15:39 11/03/16 15:39 - Laboratory Laboratory results interpreted by me: 11/03/16 11/03/16 11:30 11:30 RBC 4.03 L Hgb 12.6 L RDW 14.8 H Seg Neutrophils % 85.5 H Lymphocytes % 6.4 L BUN 26 H Glucose 71 L Alkaline Phosphatase 146 H - EKG Interpretation by Me Additional EKG results interpreted by me: 11/03/16 12:49 EKG shows atrial fibrillation at a rate of 80, normal axis, normal intervals, no ST segment elevations or depressions, poor R-wave progression, very low voltage in aVL per my interpretation. (CAROLIN VASQUEZ) - Consults Dr. Ford Reason for consultation: 11/03/16 12:45 Patient was discussed with Dr. Ford and is in agreement to admit to telemetry for observation. (ZOHREH MESA) Discharge <ZOHREH MESA - Last Filed: 11/03/16 12:59> - Discharge Admitting Provider: Hospitalist - [facility] Admitted: Telemetry <CAROLIN VASQUEZ - Last Filed: 11/03/16 19:16> - Discharge Clinical Impression: Chest pain, rule out acute myocardial infarction Dementia Qualifiers: Dementia type: Parkinson's disease Dementia behavioral disturbance: without behavioral disturbance Qualified Code(s): G20 - Parkinson's disease Atrial fibrillation Qualifiers: Atrial fibrillation type: paroxysmal Qualified Code(s): I48.0 - Paroxysmal atrial fibrillation Condition: Fair Disposition: ADMITTED OBSERVATION Scribe Attestation: 11/03/16 19:16 I personally performed the services described in the documentation, reviewed and edited the documentation which was dictated to the scribe in my presence, and it accurately records my words and actions. (CAROLIN VASQUEZ) Scribe Documentation - Scribe Written by Scribe:: Dali Mccurdy, 11/03/2016 1258 acting as scribe for :: Bud <ZOHREH MESA - Last Filed: 11/03/16 12:59>
[2016-11-03 11:50] LABS: ABSOLUTE BASOPHILS # (AUTO) 0.1 10^3/uL (0.0-0.2); ABSOLUTE EOSINOPHILS # (AUTO) 0.1 10^3/uL (0.0-0.6); ABSOLUTE LYMPHOCYTES (AUTO) 0.6 10^3/uL (0.5-4.7); ABSOLUTE MONOCYTES (AUTO) 0.6 10^3/uL (0.1-1.4); ABSOLUTE NEUT (AUTO) 8.2 10^3/uL (1.7-8.2); BASOPHILS % (AUTO) 1.2 % (0-2); EOSINOPHILS % (AUTO) 0.7 % (0-6); HEMATOCRIT 38.7 % (37.9-51.0); HEMOGLOBIN 12.6 g/dL (13.5-17.0); HGB HCT DIFFERENCE -0.9; LYMPHOCYTES % (AUTO) 6.4 % (13-45); MEAN CORPUSCULAR HEMOGLOBIN 31.2 pg (27.0-33.4); MEAN CORPUSCULAR HGB CONC 32.5 g/dL (32.0-36.0); MEAN CORPUSCULAR VOLUME 96 fl (80-97); MONOCYTES % (AUTO) 6.2 % (3-13); RED BLOOD COUNT 4.03 10^6/uL (4.35-5.55); RED CELL DISTRIBUTION WIDTH 14.8 % (11.5-14.0); SEGMENTED NEUTROPHILS % (AUTO) 85.5 % (42-78); WHITE BLOOD COUNT 9.6 10^3/uL (4.0-10.5)
[2016-11-03 12:01] LABS: PROTHROMBIN TIME 13.4 SEC (11.4-15.4)
[2016-11-03 12:12] LABS: ALANINE AMINOTRANSFERASE 31 U/L (21-72); ALBUMIN 3.6 g/dL (3.5-5.0); ALKALINE PHOSPHATASE 146 U/L (38-126); ANION GAP 12 (5-19); ASPARTATE AMINO TRANSFERASE 19 U/L (17-59); BILIRUBIN,DIRECT 0.3 mg/dL (0.0-0.4); BILIRUBIN,TOTAL 0.5 mg/dL (0.2-1.3); BLOOD UREA NITROGEN 26 mg/dL (7-20); CALCIUM 8.9 mg/dL (8.4-10.2); CARBON DIOXIDE 26 mmol/L (22-30); CHLORIDE 106 mmol/L (98-107); CREATINE KINASE 61 U/L (55-170); GLUCOSE 71 mg/dL (75-110); POTASSIUM 3.8 mmol/L (3.6-5.0); SODIUM 143.9 mmol/L (137-145); TOTAL PROTEIN 6.5 g/dL (6.3-8.2)
[2016-11-03 12:30] LABS: CREATINE KINASE MB 1.17 ng/mL (<4.55)
[2016-11-03 12:31] LABS: TROPONIN I < 0.012 ng/mL
--- NOTE | 2016-11-03 12:32 | RADIOLOGY REPORT (SQ) ---
EXAM DESCRIPTION: CHEST SINGLE VIEW COMPLETED DATE/TIME: 11/03/2016 12:03 pm REASON FOR STUDY: chest tightness COMPARISON: AP chest 08/11/2016, 10/07/2015, 03/10/2015 EXAM PARAMETERS: NUMBER OF VIEWS: One view. TECHNIQUE: Single frontal radiographic view of the chest acquired. RADIATION DOSE: NA LIMITATIONS: None. FINDINGS: LUNGS AND PLEURA: No airspace disease periphery right mid lung, edema versus pneumonia. Left lung grossly clear. No pleural effusions. No pneumothorax. MEDIASTINUM AND HILAR STRUCTURES: No masses. Contour normal. HEART AND VASCULAR STRUCTURES: No cardiomegaly BONES: No acute findings. HARDWARE: None in the chest. OTHER: No other significant finding. IMPRESSION: New airspace disease in the periphery of the right mid lung, asymmetric edema versus pne umonia TECHNICAL DOCUMENTATION: JOB ID: [id number]
[2016-11-03] MEDS ORDERED: ASPIRIN 325 MG TABLET PO ONE (12:46)
[2016-11-03] MEDS ORDERED: ONDANSETRON 4 MG TAB.RAPDIS PO PRN (13:53)
[2016-11-03] MEDS ORDERED: MORPHINE SULFATE 10 MG/ML INJ IV PRN (13:53)
[2016-11-03] MEDS ORDERED: NITROGLYCERIN 0.4 MG/TAB 25 TAB/BOTTLE SL PRN (13:53)
[2016-11-03] MEDS: CARBIDOPA/LEVODOPA ER 50-200 MG TABLET.SA PO SCH ×3 (15:40→21:39)
[2016-11-03 17:00] LABS: CREATINE KINASE MB 1.05 ng/mL (<4.55); TROPONIN I 0.016 ng/mL
[2016-11-03] MEDS ORDERED: DOCUSATE SODIUM 100 MG CAPSULE RT_EAR ONE (18:05)
--- NOTE | 2016-11-03 18:10 | PDOC H&P ---
History of Present Illness Admission Date/PCP: 11/03/16 13:53 ROLANDA ESCOBRA MD History of Present Illness: JENARO ZACARIAS is a 86 year old male with a history of Parkinson's disease, dementia, BPH, hypertension, and arthritis who presents to the emergency department with complaints of chest pressure. Patient reports that he had an episode of chest pressure this morning that was associated with some shortness of breath. At that time he denied any associated diaphoresis, nausea, vomiting. Patient denies any radiation of his pain. He had spontaneous resolution of his pain. While in route with EMS, patient was found to go into A. fib with a rate of 130-140, but spontaneously converted without any intervention. Currently patient denies any chest pain and reports that he is feeling well. He denies any antecedent illness. He is referred to hospital service for evaluation of chest pain. Past Medical History Cardiac Medical History: Reports: Atrial Fibrillation - Paroxysmal atrial fibrillation, Hypertension Denies: Myocardial Infarction Neurological Medical History: Reports: Other - Parkinson's GI Medical History: Reports: Gastroesophageal Reflux Disease Musculoskeltal Medical History: Reports: Arthritis Psychiatric Medical History: Reports: Dementia - Parkinson's dementia, Depression Past Surgical History Past Surgical History: Reports: Orthopedic Surgery Social History Smoking Status: Never Smoker Frequency of Alcohol Use: None Hx Recreational Drug Use: No Hx Prescription Drug Abuse: No - Advance Directive Resuscitation Status: Do Not Resuscitate Surrogate healthcare decision maker:: Bernard Zacarias, Son Family History Family History: CAD, Hypertension Parental Family History Reviewed: Yes Children Family History Reviewed: Yes Sibling(s) Family History Reviewed.: Yes Medication/Allergy Home Medications: Amlodipine Besylate [Norvasc 5 mg Tablet] 5 mg PO DAILY 08/11/16 Aspirin [Aspirin EC] 81 mg PO DAILY 08/11/16 Bacitracin 1 applic TOP DAILY 08/11/16 Carbidopa/Levodopa [Sinemet Cr 50-200 Tablet] 1 tab PO QID 08/11/16 Clonazepam [Klonopin] 0.5 mg PO QHS 08/11/16 Docusate Sodium [Colace 100 mg Capsule] 100 mg PO TID 08/11/16 Esomeprazole Mag Trihydrate [Nexium] 40 mg PO DAILY 08/11/16 Finasteride [Proscar 5 mg Tablet] 5 mg PO DAILY 08/11/16 Memantine HCl [Namenda] 5 mg PO QHS 08/11/16 Metoprolol Succinate [Toprol Xl 25 mg Tab.sr] 25 mg PO DAILY 08/11/16 Polyethylene Glycol 3350 [Miralax Powder 17 gm/Packet] 1 packet PO DAILY Sennosides [Senna] 1 tab PO DAILY 08/11/16 Terazosin HCl [Hytrin] 2 mg PO QHS 08/11/16 Venlafaxine HCl [Effexor Xr] 150 mg PO QHS 08/11/16 Cholecalciferol (Vitamin D3) [Vitamin D3 1000 unit Chewable Tablet] 2,000 unit PO DAILY 11/03/16 Mirabegron [Myrbetriq] 25 mg PO QHS 11/03/16 Allergies/Adverse Reactions: Penicillins Allergy (Verified 08/21/14 23:22) Review of Systems Constitutional: ABSENT: chills, fever(s), headache(s), weight gain, weight loss Eyes: ABSENT: visual disturbances Ears: ABSENT: hearing changes Cardiovascular: PRESENT: chest pain. ABSENT: dyspnea on exertion, edema, orthropnea, palpitations Respiratory: PRESENT: dyspnea. ABSENT: cough, hemoptysis, sputum Gastrointestinal: ABSENT: abdominal pain, constipation, diarrhea, dysphagia, hematemesis, hematochezia, melena, nausea, vomiting Genitourinary: ABSENT: dysuria, hematuria Musculoskeletal: ABSENT: joint swelling Integumentary: ABSENT: rash, wounds Neurological: ABSENT: abnormal gait, abnormal speech, confusion, dizziness, focal weakness, syncope Psychiatric: ABSENT: anxiety, depression, homidical ideation, suicidal ideation Endocrine: ABSENT: cold intolerance, heat intolerance, polydipsia, polyuria Hematologic/Lymphatic: ABSENT: easy bleeding, easy bruising Physical Exam Vital Signs: Temp Pulse Resp BP Pulse Ox 98.0 F 71 18 127/76 H 93 11/03/16 15:39 11/03/16 15:39 11/03/16 15:39 11/03/16 15:39 11/03/16 15:39 Intake & Output 11/02/16 11/03/16 11/04/16 06:59 06:59 06:59 Intake Total 474 Balance 474 General appearance: PRESENT: no acute distress, well-developed, well-nourished, other - Elderly, frail-appearing Head exam: PRESENT: atraumatic, normocephalic Eye exam: PRESENT: conjunctiva pink, EOMI, PERRLA. ABSENT: scleral icterus Ear exam: PRESENT: normal external ear exam. ABSENT: TM's normal bilaterally - cerumen Mouth exam: PRESENT: moist, tongue midline Neck exam: PRESENT: other - Sebaceous cyst left neck. ABSENT: JVD, lymphadenopathy, thyromegaly, tracheal deviation Respiratory exam: PRESENT: clear to auscultation rody, unlabored. ABSENT: rales , rhonchi, tachypnea, wheezes Cardiovascular exam: PRESENT: RRR, +S1, +S2, systolic murmur. ABSENT: diastolic murmur, gallop, rubs Pulses: PRESENT: normal dorsalis pedis pul Vascular exam: PRESENT: normal capillary refill GI/Abdominal exam: PRESENT: normal bowel sounds, soft. ABSENT: distended, guarding, mass, organolmegaly, rebound, tenderness Rectal exam: PRESENT: deferred Extremities exam: PRESENT: full ROM. ABSENT: calf tenderness, clubbing, pedal edema Neurological exam: PRESENT: alert, awake, oriented to person, oriented to place , oriented to situation, CN II-XII grossly intact. ABSENT: oriented to time, motor sensory deficit Psychiatric exam: PRESENT: appropriate affect, normal mood. ABSENT: homicidal ideation, suicidal ideation Skin exam: PRESENT: dry, intact, warm. ABSENT: cyanosis, rash Results Laboratory Results: 11/03/16 15:35 CK-MB (CK-2) 1.05 Troponin I 0.016 Impressions: Chest X-Ray 11/03/16 11:40 IMPRESSION: New airspace disease in the periphery of the right mid lung, asymmetric edema versus pneumonia Assessment & Plan - Diagnosis (1) Chest pain, rule out acute myocardial infarction Is this a current diagnosis for this admission?: YesPlan: Place patient on observation and rule out for acute coronary syndrome. Patient on beta-larry, aspirin, oxygen, nitrates. But this may have been secondary to an episode of paroxysmal atrial fibrillation. (2) Atrial fibrillation Qualifiers: Atrial fibrillation type: paroxysmal Qualified Code(s): I48.0 - Paroxysmal atrial fibrillation Is this a current diagnosis for this admission?: YesPlan: Episode of paroxysmal atrial fibrillation and will probably increase patient's metoprolol to 25 mg p.o. twice daily. Patient reports that he had at least 50 falls within the last year and we will refrain from anticoagulating him due to this. (3) Anemia of chronic disease Is this a current diagnosis for this admission?: Yes (4) Dementia Qualifiers: Dementia type: Parkinson's disease Dementia behavioral disturbance: without behavioral disturbance Qualified Code(s): G20 - Parkinson's disease; F02.81 - Dementia in other diseases classified elsewhere with behavioral disturbance Is this a current diagnosis for this admission?: YesPlan: Care supportive (5) Hypertension Qualifiers: Hypertension type: essential hypertension Qualified Code(s): I10 - Essential (primary) hypertension Is this a current diagnosis for this admission?: Yes (6) Parkinsons disease Is this a current diagnosis for this admission?: YesPlan: Patient on Sinemet t and supportive care. - Time Time Spent: 50 to 70 Minutes Medications reviewed and adjusted accordingly: Yes Anticipated discharge: Home Within: within 24 hours
[2016-11-03] MEDS: DOCUSATE SODIUM 100 MG CAPSULE PO SCH (18:12)
[2016-11-03 21:48] LABS: CREATINE KINASE MB 1.27 ng/mL (<4.55); TROPONIN I 0.024 ng/mL
[2016-11-03] MEDS ORDERED: CLONAZEPAM 1 MG TABLET PO SCH (22:00)
[2016-11-03] MEDS ORDERED: (PENDING PHARMACY ID) (Terazosin Hcl [Hytrin] 2 MG) PO SCH (22:00)
[2016-11-03] MEDS ORDERED: (PENDING PHARMACY ID) (Clonazepam [Klonopin] 0.5 MG) PO SCH (22:00)
[2016-11-03] MEDS ORDERED: MEMANTINE HCL 10 MG TABLET PO SCH (22:00)
[2016-11-03] MEDS ORDERED: (PENDING PHARMACY ID) (Memantine Hcl [Namenda] 5 MG) PO SCH (22:00)
[2016-11-03] MEDS ORDERED: ATORVASTATIN CALCIUM 40 MG TABLET PO SCH (22:00)
[2016-11-03] MEDS ORDERED: METOPROLOL TARTRATE 25 MG TABLET PO SCH (22:00)
[2016-11-03] MEDS ORDERED: VENLAFAXINE HCL 75 MG CAP.SR.24H PO SCH (22:00)
[2016-11-03] MEDS ORDERED: DOXAZOSIN MESYLATE 2 MG TABLET PO SCH (22:00)
[2016-11-03] MEDS ORDERED: (PENDING PHARMACY ID) (Mirabegron [Myrbetriq] 25 MG) PO SCH (22:00)
[2016-11-03] MEDS: METOPROLOL SUCCINATE 50 MG TAB.SR.24H PO SCH (23:57)
[2016-11-04 03:08] LABS: CHOLESTEROL 184.52 mg/dL (0-200); CREATINE KINASE 103 U/L (55-170); Direct HDL 55 mg/dL (>40); TRIGLYCERIDES 95 mg/dL (<150)
[2016-11-04 03:19] LABS: CREATINE KINASE MB 1.96 ng/mL (<4.55); DIRECT LDL 86 mg/dL (<100); TROPONIN I 0.025 ng/mL
--- NOTE | 2016-11-04 09:29 | RADIOLOGY REPORT (SQ) ---
EXAM DESCRIPTION: CHEST SINGLE VIEW COMPLETED DATE/TIME: 11/04/2016 8:59 am REASON FOR STUDY: ?edema COMPARISON: 11/03/2016 EXAM PARAMETERS: NUMBER OF VIEWS: One view. TECHNIQUE: Single frontal radiographic view of the chest acquired. RADIATION DOSE: NA LIMITATIONS: None. FINDINGS: LUNGS AND PLEURA: Interval partial clearing of the right lung. Left lung remains clear. MEDIASTINUM AND HILAR STRUCTURES: No masses. Contour normal. HEART AND VASCULAR STRUCTURES: Heart normal in size. Normal vasculature. BONES: No acute findings. HARDWARE: None in the chest. OTHER: No other significant finding. IMPRESSION: Interval partial clearing of the right lung. Left lung clear. TECHNICAL DOCUMENTATION: JOB ID: [id number]
[2016-11-04] MEDS ORDERED: SENNOSIDES PO SCH (10:00)
[2016-11-04] MEDS ORDERED: (PENDING PHARMACY ID) (Esomeprazole Mag Trihydrate [Nexium] 40 MG) PO SCH (10:00)
[2016-11-04] MEDS ORDERED: BACITRACIN OPH OINT 3.5 GM TP SCH (10:00)
[2016-11-04] MEDS ORDERED: ASPIRIN 325 MG TABLET, ENT COATED PO SCH (10:00)
[2016-11-04] MEDS ORDERED: (PENDING PHARMACY ID) (Cholecalciferol (Vitamin D3) [Vitamin D3 1000 Unit Chewable Tablet] PO SCH (10:00)
[2016-11-04] MEDS ORDERED: CHOLECALCIFEROL (D3) 1,000 UNIT TABLET PO SCH (10:00)
[2016-11-04] MEDS ORDERED: POLYETHYLENE GLYCOL 3350 POWDER 17 GM/1 PACKET PO SCH (10:00)
[2016-11-04] MEDS ORDERED: LANSOPRAZOLE 30 MG TAB.RAP.DR PO SCH (10:00)
[2016-11-04] MEDS ORDERED: FINASTERIDE 5 MG TABLET PO SCH (10:00)
[2016-11-04] MEDS: DOCUSATE SODIUM 100 MG CAPSULE PO SCH (11:01)
[2016-11-04] MEDS: METOPROLOL SUCCINATE 50 MG TAB.SR.24H PO SCH (11:02)
[2016-11-04] MEDS: CARBIDOPA/LEVODOPA ER 50-200 MG TABLET.SA PO SCH ×2 (11:02→15:06)
[2016-11-04] MEDS ORDERED: FUROSEMIDE 20 MG TABLET PO ONE (11:42)
--- NOTE | 2016-11-04 11:52 | PDOC DISCHARGE SUMMARY ---
General - Admit/Disc Date/PCP Admission Date/Primary Care Provider: 11/03/16 13:53 ROLANDA ESCOBAR MD Discharge Date: 11/04/16 - Discharge Diagnosis (1) Chest pain, rule out acute myocardial infarction Is this a current diagnosis for this admission?: Yes (2) Atrial fibrillation Is this a current diagnosis for this admission?: Yes (3) Anemia of chronic disease Is this a current diagnosis for this admission?: Yes (4) Dementia Is this a current diagnosis for this admission?: Yes (5) Hypertension Is this a current diagnosis for this admission?: Yes (6) Parkinsons disease Is this a current diagnosis for this admission?: Yes - Additional Information Resuscitation Status: Do Not Resuscitate Discharge Diet: Cardiac, Other (Comments) - mechanical cut Discharge Activity: Activity As Tolerated, Supervised Activity Home Medications: Aspirin [Aspirin EC] 81 mg PO DAILY 08/11/16 Bacitracin 1 applic TOP DAILY 08/11/16 Carbidopa/Levodopa [Sinemet Cr 50-200 Tablet] 1 tab PO QID 08/11/16 Clonazepam [Klonopin] 0.5 mg PO QHS 08/11/16 Docusate Sodium [Colace 100 mg Capsule] 100 mg PO TID 08/11/16 Esomeprazole Mag Trihydrate [Nexium] 40 mg PO DAILY 08/11/16 Finasteride [Proscar 5 mg Tablet] 5 mg PO DAILY 08/11/16 Memantine HCl [Namenda] 5 mg PO QHS 08/11/16 Polyethylene Glycol 3350 [Miralax Powder 17 gm/Packet] 1 packet PO DAILY Sennosides [Senna] 1 tab PO DAILY 08/11/16 Terazosin HCl [Hytrin] 2 mg PO QHS 08/11/16 Venlafaxine HCl [Effexor Xr] 150 mg PO QHS 08/11/16 Cholecalciferol (Vitamin D3) [Vitamin D3 1000 unit Chewable Tablet] 2,000 unit PO DAILY 11/03/16 Mirabegron [Myrbetriq] 25 mg PO QHS 11/03/16 Aspirin [Ecotrin 325 mg EC Tablet] 325 mg PO DAILY tabec 11/04/16 Metoprolol Succinate [Toprol Xl 50 mg Tab.sr] 50 mg PO Q12 #0 tab.sr.24h History of Present Illness History of Present Illness: JENARO ZACARIAS is a 86 year old male with a history of Parkinson's disease, dementia, BPH, hypertension, and arthritis who presents to the emergency department with complaints of chest pressure. Patient reports that he had an episode of chest pressure this morning that was associated with some shortness of breath. At that time he denied any associated diaphoresis, nausea, vomiting. Patient denies any radiation of his pain. He had spontaneous resolution of his pain. While in route with EMS, patient was found to go into A. fib with a rate of 130-140, but spontaneously converted without any intervention. Currently patient denies any chest pain and reports that he is feeling well. He denies any antecedent illness. He is referred to hospital service for evaluation of chest pain. Hospital Course Hospital Course: Patient was placed on telemetry and ruled out for acute coronary syndrome. Patient had no further recurrance of his chest pain. Likely source of pain was a -fib with RVR as noted by EMS. Chest x-ray showed pulmonary edema from this which improved with diuresis. Patient stable for discharge back to [facility]. Physical Exam Vital Signs: Temp Pulse Resp BP Pulse Ox 97.4 F 58 L 20 148/77 H 100 11/04/16 07:39 11/04/16 07:39 11/04/16 07:39 11/04/16 07:39 11/04/16 07:39 Intake & Output 11/03/16 11/04/16 11/05/16 06:59 06:59 06:59 Intake Total 984 Balance 984 Weight 74.5 kg Exam: GENERAL: No acute distress HEENT: Conjunctiva slightly injected, nonicteric, moist mucous membranes, no JVD , midline trachea,masklike facies RESPIRATORY: CTAB, no wheezes, no rhonchi CARDIAC: IRR, no gallops/rubs; +2/6 SM ABDOMEN: Soft, distended, nttp, positive bowel sounds, no rebound, no guarding : Enlarged scrotal sac, bilateral testes nl and nontender EXTREMETIES: No cyanosis, clubbing, edema NEUROLOGIC: Alert, oriented to person/place, cogwheel rigidity, resting tremor PSYCH: Normal mood, normal affect Results Laboratory Results: 11/04/16 02:40 Triglycerides 95 Cholesterol 184.52 LDL Cholesterol Direct 86 VLDL Cholesterol 19.0 HDL Cholesterol 55 11/03/16 11/03/16 11/04/16 15:35 20:38 02:40 Creatine Kinase CK-MB (CK-2) 1.05 1.27 1.96 Troponin I 0.016 0.024 0.025 11/04/16 02:40 Creatine Kinase 103 CK-MB (CK-2) Troponin I Impressions: Chest X-Ray 11/04/16 00:00 IMPRESSION: Interval partial clearing of the right lung. Left lung clear. Qualifiers PATEINT BEING DISCHARGED WITH ANY OF THE FOLLOWING DIAGNOSIS?: No Plan Time Spent: Less than 30 Minutes
[2016-11-04 16:08] VITALS: BP 161/69
--- NOTE | 2016-11-04 17:35 | EKG REPORT ---
SEVERITY:- ABNORMAL ECG - SINUS RHYTHM FIRST DEGREE AV BLOCK : Confirmed by: Cricket Marin 04-Nov-2016 17:34:40
--- NOTE | 2016-11-04 17:36 | EKG REPORT ---
SEVERITY:- ABNORMAL ECG - SINUS RHTHM, REC REPEAT EKG SEC TO BASELINE ARTIFACTS LOW VOLTAGE IN FRONTAL LEADS : Confirmed by: Cricket Marin 04-Nov-2016 17:35:37
--- NOTE | 2016-11-04 17:36 | EKG REPORT ---
SEVERITY:- OTHERWISE NORMAL ECG - SINUS RHYTHM LOW VOLTAGE IN FRONTAL LEADS : Confirmed by: Cricket Marin 04-Nov-2016 17:35:44
== END 2016-11-04 17:00 ==
LOC: ER 11:23 → EH 13:21 → UNDOADMOB 13:21 → EH 13:53 → 4W 14:47
PROVIDERS: ADMIT Family Medicine; ATTEND Family Medicine
DX: R07.9 Chest pain, unspecified (principal); I48.0 Paroxysmal atrial fibrillation; D63.8 Anemia in other chronic diseases classified elsewhere; G20 Parkinson's disease; F02.80 Dementia in other diseases classified elsewhere, unspecified severity, without behavioral disturbance, psychotic disturbance, mood disturbance, and anxiety; I10 Essential (primary) hypertension; N40.0 Benign prostatic hyperplasia without lower urinary tract symptoms; K21.9 Gastro-esophageal reflux disease without esophagitis; L72.3 Sebaceous cyst; D64.9 Anemia, unspecified; M19.90 Unspecified osteoarthritis, unspecified site; Z66 Do not resuscitate; Z79.899 Other long term (current) drug therapy; Z79.82 Long term (current) use of aspirin; Z82.49 Family history of ischemic heart disease and other diseases of the circulatory system; Z95.5 Presence of coronary angioplasty implant and graft
CPT/HCPCS: 93005 ×2; 99285; 36415 ×2; 82553 ×2; 82550 ×2; 85025; 85610; 80053; 84484 ×2; 80061; 83880; 71010 ×2; 93010 ×2; G0378 ×3; A9270 ×17; J3490 ×3

== ENCOUNTER 2017-04-07 06:56 | Emergency (ER) | payer MEDICARE, OTHER ==
--- NOTE | 2017-04-07 07:04 | ER Document Report ---
ED Fall - General Stated Complaint: HEAD INJURY Time Seen by Provider: 04/07/17 07:02 Mode of Arrival: Medic Information source: Patient, Emergency Med Personnel Cannot obtain history due to: Dementia TRAVEL OUTSIDE OF THE [place] IN LAST 30 DAYS: No - HPI Occurred: Just prior to arrival Where: Custodial - [facility]. Context: Lost balance - LEGS BUCKLED Associated symptoms: None. denies: Lost consciousness Location of injury/pain: Head Quality of pain: No pain Prehospital interventions: C-collar - Related data Allergies/Adverse Reactions: Penicillins Allergy (Verified 08/21/14 23:22) Past Medical History - General Information source: Transfer Record, [facility] Records Cannot obtain history due to: Dementia - Social History Smoking Status: Unknown if Ever Smoked Frequency of alcohol use: None Drug Abuse: None Lives with: Custodial - [facility] Family History: CAD, Hypertension Patient has suicidal ideation: No Patient has homicidal ideation: No - Past Medical History Cardiac Medical History: Reports: Hx Atrial Fibrillation - Paroxysmal atrial fibrillation, Hx Hypertension Denies: Hx Heart Attack Neurological Medical History: Reports: Other - PARKINSON'S DIS.. Denies: Hx Cerebrovascular Accident Renal/ Medical History: Reports: Hx Benign Prostatic Hyperplasia, Hx Hydrocele GI Medical History: Reports: Hx Gastroesophageal Reflux Disease Musculoskeltal Medical History: Reports Hx Arthritis Psychiatric Medical History: Reports: Hx Dementia - Parkinson's dementia, Hx Depression Past Surgical History: Reports: Hx Orthopedic Surgery - Immunizations Hx Diphtheria, Pertussis, Tetanus Vaccination: Yes - unknown Review of Systems - Review of Systems Constitutional: No symptoms reported EENT: No symptoms reported Cardiovascular: No symptoms reported. denies: Chest pain Respiratory: No symptoms reported. denies: Short of breath Gastrointestinal: No symptoms reported. denies: Abdominal pain Musculoskeletal: No symptoms reported Skin: See HPI Neurological/Psychological: No symptoms reported Physical Exam - Vital signs Vitals: Temp Pulse Resp BP Pulse Ox 98.0 F 98 16 148/74 H 93 04/07/17 07:03 04/07/17 07:03 04/07/17 07:03 04/07/17 07:03 04/07/17 07:03 Interpretation: Hypertensive. No: Tachycardic, Tachypneic, Febrile - General General appearance: Appears well, Alert In distress: None - HEENT Head: Open wounds - SMALL LAC. L. UPPER TEMPORAL ORBITAL RIM. No: Atraumatic Eyes: Normal Conjunctiva: Normal Extraocular movements intact: Yes - Respiratory Respiratory status: No respiratory distress Breath sounds: Normal - Cardiovascular Rhythm: Regular Heart sounds: Normal auscultation Murmur: No - Abdominal Inspection: Normal Distension: No distension - Extremities General upper extremity: Normal inspection General lower extremity: Normal inspection - Neurological Neuro grossly intact: Yes - MILD RESTING TREMOR NOTED Cognition: Normal Orientation: AAOx4 - Psychological Associated symptoms: Normal affect, Normal mood - Skin Skin Temperature: Warm Skin Moisture: Dry Skin Color: Normal Skin Turgor: Elastic Skin irregularity: Laceration - SEE ABOVE Course - Vital Signs Vital signs: Temp Pulse Resp BP Pulse Ox 98.0 F 98 16 148/74 H 93 04/07/17 07:03 04/07/17 07:03 04/07/17 07:03 04/07/17 07:03 04/07/17 07:03 - Diagnostic Test Radiology reviewed: Image reviewed, Reports reviewed Discharge - Discharge Clinical Impression: Parkinsons disease Fall from standing Qualifiers: Encounter type: initial encounter Qualified Code(s): W19.XXXA - Unspecified fall, initial encounter Facial laceration Qualifiers: Encounter type: initial encounter Qualified Code(s): S01.81XA - Laceration without foreign body of other part of head, initial encounter Condition: Stable Disposition: HOME-ASSISTED LIVING Instructions: Antibiotic Ointment Protection ([facility]) Additional Instructions: CONTINUE USUAL CARE, DIET, AND MEDS. KEEP WOUND CLEAN. FOLLOW UP WITH YOUR PRIMARY CARE PROVIDER OR RETURN TO E.R. IF PROBLEMS. Referrals: ANGY CHRIS MD [Primary Care Provider] - Follow up as needed
[2017-04-07 07:05] VITALS: BP 148/74
--- NOTE | 2017-04-07 07:48 | RADIOLOGY REPORT (SQ) ---
EXAM DESCRIPTION: CT HEAD WITHOUT COMPLETED DATE/TIME: 04/07/2017 7:23 am REASON FOR STUDY: FALL, TRAUMA COMPARISON: 06/14/2015. TECHNIQUE: Axial images acquired through the brain without intravenous contrast. Images reviewed wi th bone, brain and subdural windows. Images stored on PACS. All CT scanners at this facility use dose modulation, iterative reconstruction, and/or weight based d osing when appropriate to reduce radiation dose to as low as reasonably achievable (ALARA). [facility]: Dose Right [facility]: CareDose [facility]: Dose Right [facility]: Teradose 4D [facility]: [employer] RADIATION DOSE: CT Rad equipment meets quality standard of care and radiation dose reduction techniq ues were employed. CTDIvol: 64.6 mGy. DLP: 1163 mGy-cm. mGy. LIMITATIONS: None. FINDINGS: VENTRICLES: Normal size and contour. CEREBRUM: No masses. No hemorrhage. No midline shift. No evidence for acute infarction. Mild cereb ral volume loss. Mild white matter microangiopathy. CEREBELLUM: No masses. No hemorrhage. No alteration of density. No evidence for acute infarction. Mild volume loss. EXTRAAXIAL SPACES: No fluid collections. No masses. Atherosclerosis. ORBITS AND GLOBE: No intra- or extraconal masses. Normal contour of globe without masses. CALVARIUM: No fracture. PARANASAL SINUSES: No fluid or mucosal thickening. SOFT TISSUES: No mass or hematoma. OTHER: Moderate deformity and right-sided deviation of the nasal bone anteriorly without significant interval change consistent with prior injury. IMPRESSION: MILD CHRONIC MICROVASCULAR ISCHEMIA. NO ACUTE IMAGING FINDINGS IN THE BRAIN. EVIDENCE OF ACUTE STROKE: NO. COMMENT: Quality ID # [id number]: Final reports with documentation of one or more dose reduction techniques (e.g., Automated exposure control, adjustment of the mA and/or kV according to patient size, use of iterative reconstruction technique) TECHNICAL DOCUMENTATION: JOB ID: [id number] [employer]- All Rights Reserved
--- NOTE | 2017-04-07 07:50 | RADIOLOGY REPORT (SQ) ---
EXAM DESCRIPTION: CT CERVICAL SPINE WITHOUT COMPLETED DATE/TIME: 04/07/2017 7:23 am REASON FOR STUDY: FALL, PAIN COMPARISON: 06/14/2015. TECHNIQUE: Axial images acquired through the cervical spine without intravenous contrast. Images re viewed with lung, soft tissue and bone windows. Reconstructed coronal and sagittal MPR images review ed. Images stored on PACS. All CT scanners at this facility use dose modulation, iterative reconstruction, and/or weight based d osing when appropriate to reduce radiation dose to as low as reasonably achievable (ALARA). [facility]: Dose Right [facility]: CareDose [facility]: Dose Right [facility]: Teradose 4D [facility]: [employer] RADIATION DOSE: CT Rad equipment meets quality standard of care and radiation dose reduction techniq ues were employed. CTDIvol: 19.4 mGy. DLP: 423 mGy-cm. mGy. LIMITATIONS: None. FINDINGS: ALIGNMENT: Anatomic. MINERALIZATION: Osteopenia. VERTEBRAL BODIES: No fractures or dislocation. DISCS: Moderate disc desiccation between the C3 and C7 levels with moderate -large desiccated disc bu lge -osteophyte complex at the C6-C7 level with moderate spinal canal stenosis at the C6-C7 level ; a nd moderate disc bulge -osteophyte complex at the C5-C6 level. FACETS, LATERAL MASSES, POSTERIOR ELEMENTS: No fractures. No dislocation. No acute findings. HARDWARE: None in the spine. VISUALIZED RIBS: No fractures. LUNG APICES AND SOFT TISSUES: No significant or acute findings. OTHER: No other significant finding. IMPRESSION: No acute findings. Moderate-large desiccated disc bulge -osteophyte complex between the C5 and C7 levels. TECHNICAL DOCUMENTATION: JOB ID: [id number] Quality ID # [id number]: Final reports with documentation of one or more dose reduction techniques (e.g., Au tomated exposure control, adjustment of the mA and/or kV according to patient size, use of iterative reconstruction technique) 2010 [employer]- All Rights Reserved
== END 2017-04-07 09:20 | disposition home health service (06) ==
LOC: ER 06:56
DX: S01.112A Laceration without foreign body of left eyelid and periocular area, initial encounter (principal); W19.XXXA Unspecified fall, initial encounter; Y93.89 Activity, other specified; Y92.193 Bedroom in other specified residential institution as the place of occurrence of the external cause; I10 Essential (primary) hypertension; G20 Parkinson's disease; F02.80 Dementia in other diseases classified elsewhere, unspecified severity, without behavioral disturbance, psychotic disturbance, mood disturbance, and anxiety; Z88.0 Allergy status to penicillin
CPT/HCPCS: 70450; 72125; 99283

== ENCOUNTER 2017-07-24 23:26 | Emergency (ER) | payer MEDICARE, OTHER ==
--- NOTE | 2017-07-25 00:19 | ER Document Report ---
ED Fall - General Chief Complaint: Fall Stated Complaint: FALL/HEAD INJURY Time Seen by Provider: 07/25/17 00:02 Notes: Patient is an 86 year old male that comes to the ED for chief complaint of unwitnessed fall out of his bed. Patient comes by EMS from [facility], he has Alzheimer's, he does not ambulate but he does sit in a wheelchair and get around. He is not on a blood thinner. Patient was noted to have a bruise and abrasion to his left forehead, a skin tear to his left elbow. Patient does respond and answer questions, he states he does not hurt anywhere, he does cooperate with examination. TRAVEL OUTSIDE OF THE [place] IN LAST 30 DAYS: No - Related data Allergies/Adverse Reactions: Penicillins Allergy (Verified 08/21/14 23:22) Past Medical History - General Information source: Patient, Transfer Record, Emergency Med Personnel - Social History Smoking Status: Never Smoker Frequency of alcohol use: None Drug Abuse: None Lives with: [facility] Family History: CAD, Hypertension Patient has suicidal ideation: No Patient has homicidal ideation: No - Past Medical History Cardiac Medical History: Reports: Hx Atrial Fibrillation - Paroxysmal atrial fibrillation, Hx Hypertension Denies: Hx Heart Attack Neurological Medical History: Denies: Hx Cerebrovascular Accident Renal/ Medical History: Reports: Hx Benign Prostatic Hyperplasia, Hx Hydrocele. Denies: Hx Peritoneal Dialysis GI Medical History: Reports: Hx Gastroesophageal Reflux Disease Musculoskeltal Medical History: Reports Hx Arthritis Psychiatric Medical History: Reports: Hx Dementia - Parkinson's dementia, Hx Depression Past Surgical History: Reports: Hx Orthopedic Surgery - Immunizations Hx Diphtheria, Pertussis, Tetanus Vaccination: Yes - unknown Review of Systems - Review of Systems Constitutional: No symptoms reported EENT: No symptoms reported Cardiovascular: No symptoms reported Respiratory: No symptoms reported Gastrointestinal: No symptoms reported Genitourinary: No symptoms reported Male Genitourinary: No symptoms reported Musculoskeletal: See HPI Skin: See HPI Hematologic/Lymphatic: No symptoms reported Neurological/Psychological: See HPI Physical Exam - Vital signs Vitals: Temp Pulse Resp BP Pulse Ox 97.9 F 54 L 16 125/62 99 07/25/17 00:00 07/25/17 00:00 07/25/17 00:00 07/25/17 00:00 07/25/17 00:00 Interpretation: Normal - General General appearance: Appears well In distress: None - HEENT Head: Normocephalic. No: Atraumatic - Abrasion over the mid forehead at the lower aspect and over the top of the nose, minimal soft tissue swelling, otherwise unremarkable Eyes: Normal Conjunctiva: Normal Extraocular movements intact: Yes Eyelashes: Normal Pupils: PERRL Mouth/Lips: Normal Mucous membranes: Normal Pharynx: Normal Neck: Normal - Respiratory Respiratory status: No respiratory distress Chest status: Nontender. No: Tender Breath sounds: Normal Chest palpation: Normal - Cardiovascular Rhythm: Regular Heart sounds: Normal auscultation Murmur: No - Abdominal Inspection: Normal Distension: No distension Bowel sounds: Normal Tenderness: Nontender. No: Tender, Guarding Organomegaly: No organomegaly - Back Back: Normal, Nontender - Extremities General upper extremity: Other - Skin abrasion over the left lateral elbow area , unremarkable extremity exam otherwise General lower extremity: Other - Questionable tenderness over the left hip, unremarkable lower extremity exam otherwise - Neurological Neuro grossly intact: Yes Cognition: Confused Orientation: Disoriented to place, Disoriented to time, Disoriented to events. No: Disoriented to person Sam Coma Scale Eye Opening: Spontaneous Sam Coma Scale Verbal: Confused [place] Coma Scale Motor: Obeys Commands Sam Coma Scale Total: 14 Speech: Normal Cranial nerves: No: Facial palsy, Forehead sparing, Gaze palsy, Sensory deficit , Tongue deviation Motor strength normal: LUE, RUE, LLE, RLE Additional motor exam normals: Equal consulting engineer Sensory: Normal - Psychological Associated symptoms: Normal affect, Normal mood - Skin Skin Temperature: Warm Skin Moisture: Dry Skin Color: Normal Course - Re-evaluation Re-evalutation: Nasal bone fracture noted, no other acute abnormalities noted with CAT scan of the head. CAT scan of the neck unremarkable except for possible underlying pneumonia versus other pulmonary process, could be chronic. Patient with clear lungs, no hypoxia, fever, tachypnea, or other respiratory symptoms. Suspect this is chronic. Unremarkable workup otherwise. Patient will be transferred back with head injury precautions and referrals noted. - Vital Signs Vital signs: Temp Pulse Resp BP Pulse Ox 97.9 F 58 L 16 130/68 H 99 07/25/17 03:10 07/25/17 02:50 07/25/17 03:10 07/25/17 02:50 07/25/17 03:10 Discharge - Discharge Clinical Impression: Fall Qualifiers: Encounter type: initial encounter Qualified Code(s): W19.XXXA - Unspecified fall, initial encounter Facial contusion Qualifiers: Encounter type: initial encounter Qualified Code(s): S00.83XA - Contusion of other part of head, initial encounter Skin tear of elbow without complication Qualifiers: Encounter type: initial encounter Laterality: left Qualified Code(s): S51.012A - Laceration without foreign body of left elbow, initial encounter Nasal bone fracture Qualifiers: Encounter type: initial encounter Fracture type: closed Qualified Code(s): S02.2XXA - Fracture of nasal bones, initial encounter for closed fracture Condition: Stable Disposition: HOME, SELF-CARE Additional Instructions: Imaging shows nasal bone fracture, no other concerning findings. See instructions for this below. Give Tylenol for pain. Keep skin tear clean, after this current dressing is removed clean gently with soap and water, apply topical antibiotic, redress. Continue until it is healed. Follow-up with your primary provider, consider oral maxillofacial surgeon referral listed. Return for any concerning symptoms, see head injury precautions listed below. Head Injury Precautions At this point, there is no evidence that your head injury is serious. Observation is necessary, however. Take only clear liquids for the first few hours, unless told otherwise by the doctor. If no pain medication was prescribed, you may take acetaminophen according to the directions on the bottle. Do not take any medication that may alter your level of alertness (unless you've discussed it with the doctor first) . Limit activity for the first 24 hours. Bed rest is best. During the first 24 hours, check to see approximately every two to three hours that the patient is easily arousable, responds normally, and can perform common tasks such as walking without difficulty. Contact your doctor or go to the hospital if any of the following things occur: Persistent vomiting, difficulty in arousing the patient, worsening or continued headache, or failure to improve as expected. Head injuries can cause symptoms that persist for a few days or even a few weeks. Fracture of the Nose You have a fractured nose. The examination shows no evidence that the nose needs to be "set" or operated on. However, the physician must recheck the nose once the swelling has decreased. The final decision about straightening of the bones or surgery can be made once the swelling resolves. This usually takes three to five days. Rest in a reclining chair. Cold pack the nose for the next 24 to 36 hours. Do not blow the nose. This may increase the swelling or cause further bleeding. If you have painful swelling inside the nose or exquisite tenderness when the tip of the nose is touched, you should call the doctor at once or return for re-evaluation. You should also contact the doctor if you develop fever, purulent nasal drainage, increasing pain in the face, or problems with vision. Referrals: LYNETTE OROSCO MD [ACTIVE STAFF] - Follow up in 1 week
--- NOTE | 2017-07-25 01:11 | RADIOLOGY REPORT (SQ) ---
EXAM DESCRIPTION: ELBOW LEFT OVER 2 VIEWS CLINICAL HISTORY: 86 years, Male, fall, pain COMPARISON: None. NUMBER OF VIEWS: 3 LIMITATIONS: None. Findings: Bones, joints, and soft tissues of the left elbow appear intact. Minimal left ulnohumeral osteoarthritis. IMPRESSION: No acute findings.
--- NOTE | 2017-07-25 01:18 | RADIOLOGY REPORT (SQ) ---
EXAM DESCRIPTION: HIP LEFT AP/LATERAL CLINICAL HISTORY: 86 years, Male, fall, pain COMPARISON: None. NUMBER OF VIEWS: 3 LIMITATIONS: Positioning. FINDINGS: 2.7 cm ossicular calcification at the superior aspect of the left greater trochanter consistent with prior avulsive injury. Atherosclerosis. Else, no gross acute defect of the left hip. Bone demineralization. Right herniorrhaphy clips. Moderate disc desiccation. Frontal view of the left hip somewhat limited due to positioning. IMPRESSION: No acute findings.
--- NOTE | 2017-07-25 01:22 | RADIOLOGY REPORT (SQ) ---
EXAM DESCRIPTION: CT HEAD WITHOUT CLINICAL HISTORY: 86 years Male, fall, head injury COMPARISON: 04/07/2017 TECHNIQUE: No contrast. This exam was performed according to our departmental dose-optimization program, which includes automated exposure control, adjustment of the mA and/or kV according to patient size and/or use of iterative reconstruction technique. FINDINGS: Atherosclerosis. Small swelling of the left frontal scalp. Mild cerebral volume byrne. Mild white matter microangiopathy. Mild impaction fracture-deformity of the nasal bone. No hemorrhage or infarct. No mass, mass effect, or midline shift. Extra-axial structures appear otherwise grossly intact. Impression: Moderate impaction fracture or deformity of the nasal bone. Small scalp swelling. Else, no acute intracranial findings.
--- NOTE | 2017-07-25 02:42 | RADIOLOGY REPORT (SQ) ---
EXAM DESCRIPTION: CT CERVICAL SPINE WITHOUT CLINICAL HISTORY: 86 years Male, fall, head injury COMPARISON: None. TECHNIQUE: No contrast. Coronal and sagittal reformat. This exam was performed according to our departmental dose-optimization program, which includes automated exposure control, adjustment of the mA and/or kV according to patient size and/or use of iterative reconstruction technique. FINDINGS: Moderate dextroconvexity. Moderate spondylosis. Moderate disc desiccation. Moderate atlantoaxial osteoarthritis. Normal alignment and normal lordotic curvature. Bone demineralization. Moderate bilateral C4 and C5 bony foraminal stenosis. Atherosclerosis. Vertebral heights are maintained. Moderate patchiness in the right upper pulmonary lobe partially imaged. 1.8 cm likely benign left cervical dermal cyst-nodule. CT of the head reported separately. IMPRESSION: 1. No acute defect of the cervical spine. Moderate disc desiccation, spondylosis, and dextroconvexity. 2. Moderate groundglass patchiness of the right upper lobe may indicate pneumonia, edema, fibrosis.
[2017-07-25 03:36] VITALS: BP 130/68
== END 2017-07-25 03:52 | disposition home or self-care (01) ==
LOC: ER 23:26
DX: S02.2XXA Fracture of nasal bones, initial encounter for closed fracture (principal); S51.012A Laceration without foreign body of left elbow, initial encounter; W06.XXXA Fall from bed, initial encounter; Y92.122 Bedroom in nursing home as the place of occurrence of the external cause; G30.9 Alzheimer's disease, unspecified; F02.80 Dementia in other diseases classified elsewhere, unspecified severity, without behavioral disturbance, psychotic disturbance, mood disturbance, and anxiety; I10 Essential (primary) hypertension; Z99.3 Dependence on wheelchair
CPT/HCPCS: 70450; 72125; 99285